=== PATIENT | female | born 1945 | race Caucasian/White ===

== ENCOUNTER → 2016-12-04 17:01 | Outpatient (CLI) | payer MEDICARE, BC ==
[2016-06-22 12:24] VITALS: BMI 28.4
[~2016-12-04 17:01] MED LIST: ALENDRONATE SOD70 MG PO; ASPIRIN 81 MG E81 MG PO; KEFLEX500 MG PO; LUTEIN20 MG PO; METFORMIN HCL500 M1 PO; PERCOCET 10/3251 TA1 PO; PRAVACHOL40 MG PO; PRINIVIL20 MG PO; PROBENECID500 MG PO; TAMOXIFEN CITRA20 MG PO; TENORMIN50 MG PO
== END | disposition home or self-care (01) ==
LOC: D.MAMMO 11-23 09:30
DX: Z85.3 Personal history of malignant neoplasm of breast (principal); Z90.12 Acquired absence of left breast and nipple

== ENCOUNTER 2017-02-01 07:33 | Outpatient (CLI) | payer MEDICARE, BC ==
[~2017-02-01] VITALS: Ht 162.6 cm; Wt 75.0 kg
--- NOTE | ~2017-02-01 | HEMODYNAMI ---
PATIENT:BRAULIO KEENAN MEDICAL RECORD: [id number] : 45 LOCATION:DMisaelCAT ADMISSION DATE: 02/01/17 Generatedon:02/01/201710:42 Patient name: BRAULIO KEENAN Patient #: [id number] SSN: [id number] : 1945 Date of study: 02/01/2017 Page: Of Hemodynamic Procedure Report Patient Data Patient Demographics Procedure consent was obtained First Name: BRAULIO Gender: Female Last Name: SHLOMO : 1945 Middle Initial: UMA Age: 71 year(s) Patient #: [id number] Race: SSN: [id number] Additional ID: [id number] Contact details [address]: [address] [place] [address] DRIVE State: [place] City: [place] Zip code: [address] Admission Admission Data Admission Date: 02/01/2017 Admission Time: 7:33 Arrival Date: 02/01/2017 Arrival Time: 9:30 Admit Source: Other Insurance Payor: Medicare Height (in.): 64 BSA: 1.8 (m2) Height (cm.): 162.56 BMI: 28.32 (kg/m2) Weight (lbs.): 165 Weight (kg.): 74.84 Lab Results Lab Result Date: 02/01/2017 Lab Result Time: 0:00 Biochemistry Name Units Result Min Max BUN mg/dl 20 --(----)*- 7 18 Creatinine mg/dl 0.7 --(*---)-- 0.6 1.3 CBC Name Units Result Min Max Hemoglobin g/dl 13.7 --(*---)-- 13.5 17.5 Procedure Procedure Types Cath Procedure Diagnostic Procedure LHC LHC w/Coronaries Miscellaneous Procedures Moderate Sedation up to 30 minutes Procedure Description Procedure Date Procedure Date: 02/01/2017 Procedure Start Time: 10:26 Procedure End Time: 10:38 Procedure Staff Name Function Levi Mercado MD Performing Physician Baylee Benedict RT Scrub Dylan Cohen RN Nurse Nathaly Kimble RT Monitor Procedure Data Cath Procedure Fluoroscopy Diagnostic fluoroscopy Total fluoroscopy Time: 2.1 time: 2.1 min min Diagnostic fluoroscopy Total fluoroscopy dose: 217 dose: 217 mGy mGy Contrast Material Contrast Material Type Amount (ml) Isovue 300 70 Entry Location Entry Primary Successful Side Size Upsize Upsize Entry Closure Foster ccessful Closure Location (Fr) 1 (Fr) 2 (Fr) Remarks Device Remarks Radial Right 6 Fr Mechanical artery Short Compression Estimated blood loss: 5 ml Diagnostic catheters Device Type Used For End Catheter Placement Diagnostic Infinity 5Fr LV Angiography Pigtail catheter Procedure Complications No complications Procedure Medications Medication Administration Route Dosage Oxygen NC 2 l/min Heparin Flush Bag added to field 2 bags (1000units/500ml NS) 0.9% NaCl I.V. 100 ml/hr Radial Cocktail added to field 1 syringe (Verapomil 2mg/Nitro 400mcg/Heparin 1500units) Fentanyl I.V. 50 mcg Versed I.V. 1 mg Fentanyl I.V. 50 mcg Versed I.V. 1 mg Radial Cocktail I.A. 1 syringe (Verapomil 2mg/Nitro 400mcg/Heparin 1500units) Hemodynamics Rest BSA: 1.8 (m2) HGB: 13.7 (g/dl) O2 Consumption: Estimated: 161.2 (ml/min) O2 Cons umption indexed: Estimated:89.56 (ml/min/m) Heart Rate: 64 (bpm) Pressure Samples Time Site Value (mmHg) Purpose Heart Use Rate(bpm) 10:34 LV 130/9,14 Snapshot 67 10:35 AO 135/63(96) Pullback 70 10:35 LV 136/6,15 Pullback 70 Gradients Valve Time Site 1 Site 2 Mean SEP/DFP Peak To Heart Use (mmHg) (sec/min) Peak Rate (mmHg) (bpm) Aortic 10:35 LV AO 8 12 1 70 136/6,15 135/63(96) Calculations Valve P-P Mean Valve Index Valve Source Name Gradient Area Flow (cm2) Aortic 1 8 1 8 Snapshots Pre Cath Intra NCS Post Cath Vital Signs Time Heart Resp SPO2 etCO2 [id number] NIBP (mmHg) Rhythm Pain Sedation Rate (ipm) (%) (mmHg) (mmHg) Status Level (bpm) 10:10:54 60 17 99 0 0 196/94(140) NSR 0 (11) 10(A) , No pain 10:15:20 53 17 98 0 0 165/82(144) NSR 0 (11) 10(A) , No pain 10:19:54 54 18 98 0 0 169/81(125) NSR 0 (11) 9(A) , No pain 10:25:42 66 18 99 0 0 193/94(150) NSR 0 (11) 9(A) , No pain 10:31:49 65 17 95 0 0 154/68(100) NSR 0 (11) 9(A) , No pain 10:36:21 65 17 96 0 0 162/76(120) NSR 0 (11) 9(A) , No pain 10:41:58 57 18 97 0 0 182/69(133) NSR 0 (11) 9(A) , No pain Medications Time Medication Route Dose Verified Delivered Reason Notes Effectiveness by by 10:08:34 Oxygen NC 2 l/min Dylan Richardson Per Noel Cohen RN physician RN 10:08:43 Heparin Flush added 2 bags Dylan Petersony used for Bag to Noel Cohen service girl (1000units/500ml field RN NS) 10:08:54 0.9% NaCl I.V. 100 Dylan Dylan Per ml/hr Noel Cohen RN physician RN 10:09:04 Radial Cocktail added 1 Dylan Dylan used for (Verapomil to syringe Noel Cohen service girl 2mg/Nitro field RN 400mcg/Heparin 1500units) 10:16:33 Fentanyl I.V. 50 mcg Dylan Dylan for sedation Noel Cohen RN RN 10:16:40 Versed I.V. 1 mg Dylan Dylan for sedation Noel Cohen RN RN 10:29:12 Fentanyl I.V. 50 mcg Dylan Dylan for sedation Noel Cohen RN RN 10:29:15 Versed I.V. 1 mg Dylan Dylan for sedation Noel Cohen RN RN 10:29:21 Radial Cocktail I.A. 1 Dylan Levi for (Verapomil syringe Noel Mercado MD vasodilation 2mg/Nitro RN 400mcg/Heparin 1500units) Procedure Log Time Note 9:41:20 Dylan Cohen RN sent for patient. Start room use. 9:45:55 Patient Height : 64 cm 9:45:59 Patient Weight : 165 kg 9:46:02 Admit Source: Other 9:51:21 Time tracking: Regular hours 9:51:26 Plan of Care:Hemodynamics will remain stable., Cardiac rhythm will remain stable., Comfort level will be maintained., Respiratory function will remain adequate., Patient/ family verbilizes understanding of procedure., Procedure tolerated without complication., Recovers from procedure without complications.. 9:58:02 Patient received from Pre/Post Procedure Room to CCL 1 Alert and oriented. Tansferred to table in Supine position. 9:58:03 Warm blankets applied, and sal hugger turned on for patient comfort. 9:58:03 Correct patient and procedure confirmed by team. 9:58:07 Signed procedure consent form obtained from patient. 9:58:08 ECG and BP/O2 sat monitors applied to patient. 9:58:09 Full Disclosure recording started 10:08:05 Vital chart was started 10:08:32 Baseline sample Acquired. 10:08:34 Oxygen 2 l/min NC was administered by Dylan Cohen RN; Per physician; 10:08:36 Rhythm: sinus rhythm 10:08:43 Heparin Flush Bag (1000units/500ml NS) 2 bags added to field was administered by Dylan Cohen RN; used for procedure; 10:08:54 0.9% NaCl 100 ml/hr I.V. was administered by Dylan Cohen RN; Per physician; 10:09:04 Radial Cocktail (Verapomil 2mg/Nitro 400mcg/Heparin 1500units) 1 syringe added to field was administered by Dylan Cohen RN; used for procedure; 10:09:26 H&P Date Dictated: 01/30/2017 Within 30 days and on chart., H&P Addendum completed by physician on day of procedure. (MUST COMPLETE FOR ALL OUTPATIENTS). 10:09:27 Pre-procedure instructions explained to patient. 10:09:28 Pre-op teaching completed and patient verbalized understanding. 10:09:29 Family in waiting room. 10:09:31 Patient NPO since Midnight. 10:09:37 Is the patient allergic to Iodine/contrast media? No. 10:09:38 Was the patient premedicated? No 10:09:43 Is patient on blood thinner?No 10:09:48 Patient diabetic? Yes. 10:09:49 If diabetic: On Metformin? Yes 10:09:52 If on Metformin: Last Dose? 01/30/2017 10:09:57 Previous problem with sedation/anesthesia? No ? 10:10:02 Snore? Yes 10:10:04 Sleep apnea? No 10:10:06 Deviated septum? No 10:10:07 Opens mouth fully? Yes 10:10:07 Sticks out tongue? Yes 10:10:31 Airway obstruction? No ? 10:10:33 Dentures? No ? 10:12:50 Pre procedure: right dorsailis pedis pulse 2+ Normal; easily identifiable; not easily obliterated 10:12:54 Pre procedure: left dorsailis pedis pulse 2+ Normal; easily identifiable; not easily obliterated 10:12:59 Patient pain scale 0/10 ?. 10:13:07 IV patent on arrival in right antecubital with 0.9% NaCl at [facility]. 10:15:13 Lab Result : Creatinine 0.7 mg/dl 10:15:13 Lab Result : BUN 20 mg/dl 10:15:13 Lab Result : Hemoglobin 13.7 g/dl 10:15:17 Lab results completed and on chart. 10:15:22 Right Radial & Right Groin area was prepped with chlora-prep and draped in sterile fashion 10:15:23 Alarms reviewed by R. N. 10:15:23 Sharps counted by scrub and verified by R.N. 10:15:24 Physician arrived 10:15:25 --------ALL STOP TIME OUT------ 10:15:25 Final Timeout: patient, procedure, and site verified with staff and physician. All members of the team are in agreement. 10:15:28 Right Radial & Right Groin site verified by team. 10:15:31 Physical assessment completed. ASA score P 2 - A patient with mild systemic disease as per Levi Mercado MD. 10:15:34 Sedation plan: IV Moderate Sedation Versed, Fentanyl 10:16:33 Fentanyl 50 mcg I.V. was administered by Dylan Cohen RN; for sedation; 10:16:40 Versed 1 mg I.V. was administered by Dylan Cohen RN; for sedation; 10:20:04 Zero performed for pressure channel P1 10:20:19 Use device set Radial Dx 10:20:20 Acist Syringe opened to sterile field. 10:20:20 Medline Cath Pack opened to sterile field. 10:20:21 Bag Decanter opened to sterile field. 10:20:21 Terumo 6Fr Slender Glidesheath opened to sterile field. 10:20:21 St Mk 260cm J .035 wire opened to sterile field. 10:20:22 Acist Hand Control opened to sterile field. 10:20:22 Acist Manifold opened to sterile field. 10:20:22 Tegaderm 4 x 4 opened to sterile field. 10:20:23 MBrace Wrist Support opened to sterile field. 10:25:44 Procedure started. 10:26:20 Local anesthetic to right radial artery with Lidocaine 2% by Levi Mercado MD.INITIAL ACCESS ONLY 10:26:38 A 6 Fr Short sheath was inserted into the Right Radial artery 10:29:12 Fentanyl 50 mcg I.V. was administered by Dylan Cohen RN; for sedation; 10:29:15 Versed 1 mg I.V. was administered by Dylan Cohen RN; for sedation; 10:29:21 Radial Cocktail (Verapomil 2mg/Nitro 400mcg/Heparin 1500units) 1 syringe I.A. was administered by Levi Mercado MD; for vasodilation; 10:29:40 Terumo 6Fr [place] 4.0 guide catheter opened to sterile field. 10:30:20 LCA angiography performed. 10:30:23 Injector settings: Ml/sec: 3, Volume: 6, 10:32:08 RCA angiography performed. 10:32:11 Injector settings: Ml/sec: 3, Volume: 6, 10:32:22 Catheter removed. 10:33:00 A Diagnostic Infinity 5Fr Pigtail catheter was advanced over the wire and used for LV Angiography. 10:34:07 LV hemodynamics recorded. 10:34:09 LV gram done using MATSON 10:34:11 Injector settings: Ml/sec: 5, Volume: 15, 10:34:42 EF : 50 % 10:35:05 Catheter removed. 10:35:15 Terumo TR Band Standard opened to sterile field. 10:36:44 Sheath removed intact; hemostasis achieved with Mechanical Compression to the Right Radial artery. 10:36:51 Procedure ended.(Physican Out) 10:37:10 Fluoroscopy time 02.10 minutes. 10:37:15 Flurop Dose total: 217 10:37:15 Fluoroscopy dose: 217 mGy 10:37:39 Contrast amount:Isovue 300 70ml. 10:37:42 Sharps counted by scrub and verified by R.N. 10:37:59 TR band inflated with 10cc of air. 10:38:00 Insertion/operative site no bleeding no hematoma. 10:38:05 Post right radial artery:stable 10:38:07 Post Procedure Pulses reassessed and unchanged 10:38:11 Post procedure rhythm: unchanged. 10:38:15 Estimated blood loss: 5 ml 10:38:17 Post procedure instruction explained to patient.Patient verbalizes understanding. 10:38:17 Patient needs reinforcement of post procedure teaching. 10:38:34 Procedure type changed to Cath procedure, Diagnostic procedure, LHC, LHC w/Coronaries, Miscellaneous Procedures, Moderate Sedation up to 30 minutes 10:38:35 Procedure and supply charges have been captured, reviewed, submitted and are correct. 10:38:40 Procedure Complication : No complications 10:38:44 Vital chart was stopped 10:38:45 See physician's report for complete and final results. 10:38:51 Report given to Pre/Post Procedure Room. 10:38:54 Patient transfered to Pre/Post Procedure Room with Stretcher. 10:38:57 Procedure ended. 10:38:57 Full Disclosure recording stopped 10:39:01 End room use (Document Last) 10:41:24 Arrival Date: 02/01/2017 9:30:00 AM 10:41:44 Insurance Payor : Medicare Device Usage Item Name Manufacture Quantity Catalog Hospital Part Current Minimal Lot# / Number Charge Number Stock Stock Serial# Code Acist Acist 1 [id number] [id number] 163860 003933 20 Syringe Medical Systems Inc Medline Cardinal 1 [id number] [id number] 66770 825169 5 Cath Pack Health Bag Microtek 1 2001S 171918 17621 545513 5 DecFayettechill [employer]. Terumo 6Fr Terumo 1 [id number] 542817 309649 992306 [address] Mk St Mk 1 182176 951835 473233 709510 30 260cm J .035 wire Acist Hand Acist 1 95164 120083 561929 207341 5 Control Medical Systems Inc Acist Acist 1 96404 818850 990670 981462 5 Manifold Medical Systems Inc Tegaderm 4 3M 1 1626W 571199 954005 531546 5 x 4 MBrace Advanced 1 140-0250-00 195304 53243 181880 5 Wrist Vascular Support Dynamics Terumo 6Fr Terumo 1 46-7723 962501 441260 021060 1 [place] 4.0 guide catheter Diagnostic Cardinal 1 [id number] 864385 725846 593240 5 XimoXi 5Fr Pigtail catheter Terumo TR Terumo 1 [id number] 860787 573380 925873 40 Band Standard Signature Audit [place] Stage Time Signature Unsigned Intra-Procedure 02/01/2017 Nathaly Kimble 10:42:31 AM RT(R) Signatures Monitor : Nathaly Kimble RT Signature : Date : Time : [place] [id number] [place] [place] [id number]
[2017-02-01 08:26] VITALS: BP 97/52; Ht 162.6 cm; Wt 75.0 kg
[2017-02-01 08:44] LABS: BASOPHILS 0.2 % (0-2); EOSINOPHILS 1.2 % (0-7); HEMATOCRIT 41.1 % (36.0-48.0); HEMOGLOBIN 13.7 g/dL (12-16); IMMATURE GRANULOCYTES 0.2 % (0-5); LYMPHOCYTES 23.1 % (15-50); MCH 33.4 pg (26.0-34.0); MCHC 33.3 g/dL (31.0-37.0); MCV 100.2 fL (80.0-100.0); MEAN PLATELET VOLUME 11.2 fL (7.4-10.4); NEUTROPHILS 67.3 % (40-80); PLATELET COUNT 164 10x3/uL (130-400); RDW 12.8 % (11.5-14.5); WBC 6.5 10x3/uL (4.8-10.8)
[2017-02-01 09:01] LABS: CALC OSMOLALITY 285 mosm/kg (275-300); CALCIUM 8.9 mg/dL (8.5-10.1); CARBON DIOXIDE 26.4 mmol/L (21.0-32.0); CHLORIDE - SERUM 107 mmol/L (98-107); CREATININE - SERUM 0.7 mg/dL (0.6-1.3); GLUCOSE 132 mg/dL (74-106); SODIUM 141 mmol/L (136-145); UREA NITROGEN 20 mg/dL (7-18); eGFR NON AFRICAN AMERICAN 87 mL/min (90-120)
[2017-02-01 09:06] LABS: POTASSIUM - SERUM 5.1 mmol/L (3.5-5.1)
--- NOTE | 2017-02-01 10:55 | NUR ---
1055 RECIEVED BACK TO ROOM VIA STRETCHER FROM LYFT DRIVER WITH TR BAND TO THE R/WRIST CDI NO BLEEDING NO HEMATOMA NOTED. INSTRUCTED PATIENT TO KEEP RUE STRAIGHT NO BENDING OR FLEXING OF WRIST. 1115 RESTING QUIETLY WITH EYES CLOSED NO DISTRESS VSS TR BAND REMAINS TO R/WRIST CDI
--- NOTE | 2017-02-01 11:45 | NUR ---
1145 REPOSITIONED TO SITTING WITH HOB UP 30 DEGREES FOR COMFORT. PATIENT VOIDS 300 CC URINE TO COLLECTION MONIQUE CARE PROVIDED VSS WITH CHEST PAIN DENIED 1215 SANDWICH AND SODA TO BEDSIDE WITH NEEDS PROVIDED TR BAND REMAINS TO R/WRIST CDI NO BLEEDING NO HEMATOMA NOTED.
--- NOTE | 2017-02-01 12:45 | NUR ---
1245 VSS WITH CHEST PAIN DENIED NO CHANGE IN ASSESSMENT. TR BAND REMAINS CDI NO BLEEDING NO HEMATOMA NOTED 1300 2 CC AIR REMOVED FROM TR BAND WITH NO BLEEDING NOTED
--- NOTE | 2017-02-01 13:15 | NUR ---
1315 PIV REMOVED WITH DRESSING APPLIED. 2 CC AIR REMOVED FROM TR BAND NO BLEEDING AT SITE. CHEST PAIN IS DENIED PATIENT UP TO GET DRESSED FOR DISCHARGE HOME
--- NOTE | 2017-02-01 13:26 | NUR ---
VERBAL AND WRITTEN DISCHARGE GONE OVER WITH PATIENT AND FAMILY BOTH VERBALIZED UNDERSTANDING. TR BAND REMOVED WITH DRESSING APPLIED. CHEST PAIN IS DENIED. LEFT VIA WC TO PARKING FOR TO DRIVE HOME
--- NOTE | 2017-02-02 13:26 | OP ---
PATIENT NAME: BRAULIO KEENAN MEDICAL RECORD: [id number] :45 LOCATION:D.CAT ADMISSION DATE: SURGEON: [place] M.D. DATE OF OPERATION: 02/01/2017 Catheterization Report REFERRING PHYSICIAN: Nathaly Paulson MD PROCEDURES PERFORMED: 1. Selective coronary angiography. 2. Left heart catheterization with ventriculogram. INDICATION: A 71-year-old presents with worsening mitral regurgitation. EQUIPMENT USED: A 5-[place] catheter, pigtail catheter. TECHNIQUE: A 6-[place] sheath was inserted in retrograde fashion in the right radial artery. Next, selective coronary angiography was performed in standard views using 5-[place] catheter. Left heart catheterization performed using pigtail catheter. CORONARY ANATOMY: 1. Left main: Left main trunk is large in caliber. It gives rise to the LAD and circumflex. It appears angiographically normal. 2. LAD: This is a moderate caliber vessel extending to the apex. It gives rise to a moderate caliber diagonal proximal segment. The LAD and diagonal are angiographically normal. 3. Circumflex: This vessel is moderate in caliber. ____ lateral branch in mid segment. The circumflex and lateral branches are angiographically normal. 4. Right coronary: This vessel is quite large and dominant. It provides the PDA and posterolateral branches in the distal segment. This vessel is a smooth-walled vessel and angiographically normal. 5. Left ventricle: The left ventricle is normal in size. Systolic function appears to be lower limits of normal around 50%. There is at least moderate mitral regurgitation noted. IMPRESSION: 1. Normal coronary arteries. 2. At least moderate mitral regurgitation with ejection fraction 50%. RECOMMENDATIONS: We will likely have Dr. Yepez to review the case again. The ejection fraction is slightly diminished from previous and she now has a prolapse of both mitral valve leaflets. TRANSINT:[id number] Voice Confirmation ID: [id number] DOCUMENT ID: [id number] OPERATIVE REPORT [id number] BRAULIO KEENAN [place] M.D. at 1326 CC: [id number] DICTATION DATE: 02/01/17 1041 BOOM TENDER: 02/01/17 2334 DEP CLI 02/01/17 [facility] [address] [place] [address]
== END 2017-02-01 13:30 | disposition home or self-care (01) ==
LOC: D.CATH 07:33
PROVIDERS: Internal Medicine Cardiovascular Disease
DX: I34.0 Nonrheumatic mitral (valve) insufficiency (principal)

== ENCOUNTER → 2018-01-28 22:38 | Outpatient (CLI) | payer MEDICARE, BC ==
[2017-02-01 08:26] VITALS: BMI 28.4
== END | disposition home or self-care (01) ==
LOC: D.MAMMO 12:00
DX: Z85.3 Personal history of malignant neoplasm of breast (principal); Z12.31 Encounter for screening mammogram for malignant neoplasm of breast

== ENCOUNTER 2018-03-05 09:37 | Day surgery (SDC) | payer MEDICARE, BC ==
[~2018-03-05] VITALS: Ht 162.6 cm; Wt 68.0 kg
--- NOTE | ~2018-03-05 | HP ---
PATIENT: BRAULIO KEENAN MEDICAL RECORD: [id number] ACCOUNT: [id number] LOCATION:D.OPS : 45 ADMISSION DATE: 03/05/18 HISTORY AND PHYSICAL EXAMINATION NameBRAULIO KEENAN (72yo, F) ID# [id number]. Date/Time12/21/2017 01:68FNZYW41/24/194Serre[facility] Dept.NPP_[place] ClinicProviderEDWINDY FRANKLIN MDInsuranceMed Primary: [place] ([place]) Insurance # : [id number] Referring Provider Name : DARYA APPLE Employer Name : UNKNOWN Med Secondary: [employer] Insurance # : [id number] Policy/Group # : [id number] Referring Provider Name : DARYA APPLE Employer Name : UNKNOWN Prescription: ESI1 - Member is eligible. Chief Complaint Followup: Mitral valve regurgitation Following MR 9 mo f/u-schedule for OSMAN? Patient's Care Team Referring Provider (): DARYA APPLE: [facility], [facility] [place] [address], , Trailhead Maintenance Worker: [place] MD: [address] [place] [phone], , Patient's Pharmacies [facility] (ERX): [address] [facility] [address], , Vitals BP:142/80 sitting R arm 12/21/2017 01:24 pmHR:57/irreg 12/21/2017 01:24 pmHt:5 ft 6 in 12/21/2017 01:20 pmWt:151 lbs 12/21/2017 01:24 pmBMI:24.4 12/21/2017 01:24 pmAllergies Reviewed Allergies NKDAMedications Reviewed Medications alendronate 70 mg /05/18 hcifjeCAEMLhfonuog95/26/13 enteredRebecca Coxatenolol 50 mg qsriqx87/05/18 filledMEDCOatorvastatin 40 mg oplluo17/21/18 filledMEDCOcefdinir 300 mg zydhblq08/20/17 filledMEDCOFarxiga 5 mg dayvid67/26/18 filledMEDCOlisinopril 20 mg /05/18 filledMEDCOmetFORMIN 500 mg /29/17 filledMEDCOnitrofurantoin monohydrate/macrocrystals 100 mg yxgkkvp95/25/18 filledMEDCOpravastatin 40 mg /27/18 filledMEDCOtamoxifen 20 mg pyhnfk35/26/18 filledMEDCOVision Formula (with lutein)03/21/17 enteredKathy WilsonProblems Reviewed Problems Primary malignant neoplasm of female breast Carcinoma in situ of breast Multinodular goiter Dominant nodule of thyroid Mitral valve regurgitation - Onset: 03/16/2017 Mammography abnormal Family History Reviewed Family History HISTORY AND PHYSICAL [id number] BRAULIO KEENAN Non-contributory.Social History Reviewed Social History Cardiology and General Family history of heart disease?: N Smoking Status: Former smoker Smoker () (Notes: QUIT 30 YEARS AGO) High Cholesterol: Y High blood pressure: Y Diabetes: Y Alcohol intake: None Marital status: Caffeine intake: None Surgical History Reviewed Surgical History Other - Repair of right elbow fracture Mastectomy, simple, complete (surg) - 10/08/2013 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 HPI Fatigue Reported by patient. Severity: normal sleep patterns; normal exercise habits; normal activity; improving Timing: better Context: symptoms improve on weekends/vacation; no problems/stress at work or home Modifying Factors: no new stressors in life; taking vitamins Associated Symptoms: no drug/alcohol withdrawal; no depression; no anxiety; no sleep disturbances; no snoring; periods of not breathing (apnea) have not been observed; no recent change in weight Faulkner's mitral valve prolapse ROS Patient reports no fever, no night sweats, no significant weight gain, no significant weight loss, and no exercise intolerance; the patient can ride a bike 5 pounds and has no shortness of breath and any time. She reports no dry eyes, no irritation, and no vision change. She reports no difficulty hear ing and no ear pain. She reports no frequent nosebleeds and no nose/sinus problems. She reports no sore throat, no bleeding gums, no snoring, no dry mouth, no mouth ulcers, no oral abnormalities, and no teeth problems. She reports no jugular vein distensi o n and no swollen glands. She reports no chest pain, no arm pain on exertion, no shortness of breath when walking, no shortness of breath when lying down, no palpitations, and no known heart murmur. She reports no cough, no wheezing, no shortness of breath , and no coughing up blood. She reports no abdominal pain, no vomiting, normal appetite, no diarrhea, not vomiting blood, no nausea, and no constipation. She HISTORY AND PHYSICAL [id number] SHLOMOBRAULIO UMA reports no incontinence, no difficulty urinating, no hematuria, and no increased frequency. She re p orts no muscle aches, no muscle weakness, no arthralgias/joint pain, no back pain, and no swelling in the extremities. She reports no abnormal mole, no jaundice, and no rashes. She reports no loss of consciousness, no weakness, no numbness, no seizures, n o dizziness, and no headaches. She reports no depression, no sleep disturbances, feeling safe in relationship, and no alcohol abuse. She reports no fatigue. She reports no swollen glands and no bruising. She reports no runny nose, no sinus pressure, no itc jacky, no hives, and no frequent sneezing. ROS as noted in the HPI Physical Exam Patient is a 72-year-old female. Constitutional: General Appearance well nourished and developed and healthy-appearing. Level of Distress NAD. Ambulation ambulating normally. Cardiovascular: Apical Impulse not displaced or no thrill. Heart Auscultation normal s1 and s2, no rubs or gallops, and RRR and murmur (low pitched mitral regurgitation). Arterial Pulses no abdominal aorta bruits, femoral bruits, or popliteal bruits and 2+ bilateral, carotid 2+ bilateral, femoral 2+ bilateral, popliteal 2+ bilateral, and dorsalis pedis 2+ bilateral. Edema no edema or varicosities. Lungs: Repiratory Effort no dyspnea. Percussion no hyperresonance or dullness or flatness. Auscultation no wh eezing, rhonchi, or rales / crackles and breathing sounds normal, good air movement, and CTA except as noted. Abdomen: Bowl Sounds normal. Inspection and Palpation no tenderness, guarding, masses, or rebound tenderness and soft and non-distended. Liver no n-tender and no hepatomegaly. Spleen non-tender and no splenomegaly. Hernia none palpable. Musculoskeletal System: Gait And Stance normal gait and stance. Digits and Nails normal nails and no cyanosis. Neurologic: Cranial Nerves grossly intact. Reflexes DTRs 2+ bilaterally throughout. Sensation grossly intact. Lymph Nodes: Lymph Nodes no cervical LAD, supraclavicular LAD, axillary LAD, or inguinal LAD. Eyes: Lids and Conjunctivae no discharge or pallor and non-injected. Pupils PERRLA. Cornea grossly intact. EOM EOMI. Lens clear. Sclera non-icteric. Neck: Neck no masses, enlarged lymph nodes, or carotid bruits and supple and trachea midline. Thyroid no enlargement or nodules and non-tender. Skin: Inspection and Palpation no rash, lesions, ulcers, jaundice, or abnormal nevi. Assessment / Plan Faulkner's mitral valve prolapse 1. Mitral valve regurgitation I34.0: Nonrheumatic mitral (valve) insufficiency HEART VALVE DISEASE: CARE INSTRUCTIONS MITRAL VALVE REGURGITATION: CARE INSTRUCTIONS HISTORY AND PHYSICAL [id number] BRAULIO KEENAN Discussion Notes patient has excellent exercise tolerance and no shortness of breath She will call to schedule transesophageal echo with general anesthesia ROYCE FRANKLIN MD at 1309 CC: [id number] DICTATION DATE: 12/21/17 1310 TELECOM ASSISTANT: DM 03/04/18 1011 [facility] 03/05/18 [place] [id number] [place] [address]
--- NOTE | ~2018-03-05 | OP ---
PATIENT NAME: BRAULIO KEENAN MEDICAL RECORD: [id number] :45 LOCATION:D.OPS ADMISSION DATE: SURGEON: ROYCE YEPEZ MD DATE OF OPERATION: 03/05/2018 SURGEON: Royce Yepez MD ANESTHESIA: Turner, general. OPERATION PERFORMED: Transesophageal echocardiogram. PREOPERATIVE DIAGNOSIS: Mitral regurgitation. POSTOPERATIVE DIAGNOSIS: Mitral valve prolapse bileaflet and regurgitation. INDICATION FOR OPERATION: Mitral regurgitation. FINDINGS OF THE OPERATION: The transesophageal echocardiogram was performed by Dr. Bosch and read real-time by me. The left ventricular ejection fraction normal. The left atrium upper limits of normal. There was no mitral regurgitation or tricuspid regurgitation. There was trace aortic regurgitation. ESTIMATED BLOOD LOSS: None. DESCRIPTION OF PROCEDURE: After informed consent, adequate preoperative medication evaluation, the patient was brought to the operating room, placed on the table in the supine position. After induction of general anesthesia and application of appropriate monitoring devices, the patient underwent placement of the transesophageal probe with Dr. Bosch. The heart was examined. The above findings were noted. The patient has bileaflet mitral valve prolapse with moderate mitral regurgitation. The patient has trace aortic regurgitation with good leaflet mobility. The probe was removed. The patient awakened and transferred to the postanesthesia recovery in satisfactory condition. TRANSINT:[id number] Voice Confirmation ID: [id number] DOCUMENT ID: [id number] ROYCE YEPEZ MD at 1309 CC: [id number] DICTATION DATE: 03/05/18 1246 PLASTIC SHAPER: 03/05/18 1328 [facility] 03/05/18 [place] [address]
--- NOTE | ~2018-03-05 | TEE ---
PATIENT:BRAULIO KEENAN MEDICAL RECORD: [id number] LOCATION:D.[facility] AGE OF PATIENT: 72 ADMISSION DATE: 03/05/18 SEX: F REFERRING PHYSICIAN: INTERPRETING PHYSICIAN: JEN ARCOS MD TRANSESOPHAGEAL ECHOCARDIOGRAM Date: 03/05/18 OSMAN CHARGE Y INDICATIONS: ASSESS MITRAL VALVE AND REGURG PREMEDICATIONS: PATIENT'S RESPONSE PROCEDURE DOPPLER MEASUREMENTS: LVIT LA PA RA LVOT RVOT Asc. Ao AV Gradient Peak AV Mean AV Area MV Gradient Peak MV Mean MV Area INTERPRETATION: Doppler: 2-D: MITRAL VALVE PROLAPSE OF BOTH LEAFLETS COLOR FLOW DOPPLER SEVERE MR, TRACE AI NORMAL SALINE STUDY: MISCELLANOUS: DIAGNOSIS: PLAN: Bias Binding Folder:1 Dr. Arcos Freezer Unloader: Kyara CUELLAR COMMENTS: NOEMI PATIENT DATE OF SERVICE: 03/05/2018 PROCEDURE: Transesophageal echo evaluation of valvular structures during mitral valve repair. FINDINGS: 1. Left ventricular chamber size is within normal limits. Left ventricular systolic function is normal. Overall ejection fraction estimated at 60%. 2. Left atrium is within normal limits at 3.9 cm. Right atrium and right TRANSESOPHAGEAL ECHOCARDIOGRAM REPORT [id number] DANIEL KEENAN ventricle chamber sizes are mildly dilated. 3. Valvular structures: Mitral valve shows mitral valve prolapse of both leaflets causing severe mitral regurgitation. Remaining valvular structures have normal structure and motion. 4. Doppler interrogation elsewise only reveals trace aortic insufficiency. 5. No evidence of pericardial effusion or left ventricular thrombus. TRANSINT:[id number] Voice Confirmation ID: [id number] DOCUMENT ID: [id number] at 1207 CC: [id number] DICTATION DATE: 03/05/18 1621 MARKETING ACCOUNT MANAGER: 03/05/18 1811 [facility] 03/05/18 [id number] [place] [address]
[2018-03-05 10:06] LABS: HEMATOCRIT 36.8 % (36.0-48.0); MCH 33.2 pg (26.0-34.0); MCHC 32.6 g/dL (31.0-37.0); MCV 101.9 fL (80.0-100.0); MEAN PLATELET VOLUME 10.9 fL (7.4-10.4); RBC 3.61 10x6/uL (4.00-5.40); RDW 12.9 % (11.5-14.5); WBC 4.4 10x3/uL (4.8-10.8)
[2018-03-05 10:20] LABS: APTT 24.8 SECONDS (22.8-39.4); INR 1.06 (0.85-1.17); PROTIME 13.4 SECONDS (11.6-15.0)
[2018-03-05 10:27] LABS: ANION GAP 14.7 mmol/L (8-16); CREATININE - SERUM 1.4 mg/dL (0.6-1.3); POTASSIUM - SERUM 4.7 mmol/L (3.5-5.1)
[2018-03-05] MEDS ORDERED: ACTOS15 MG (11:09)
[2018-03-05 11:12] VITALS: BP 137/47; Ht 162.6 cm; Wt 68.0 kg
== END 2018-03-05 14:52 | disposition home or self-care (01) ==
LOC: D.OPS 09:37
PROVIDERS: Internal Medicine Cardiovascular Disease
DX: I34.0 Nonrheumatic mitral (valve) insufficiency (principal); I34.1 Nonrheumatic mitral (valve) prolapse; Z01.812 Encounter for preprocedural laboratory examination

== ENCOUNTER → 2018-12-23 10:06 | Outpatient (CLI) | payer MEDICARE, BC ==
[2018-03-05 11:12] VITALS: BMI 25.8
[~2018-12-23 10:06] MED LIST changes: +ACTOS15 MG
--- NOTE | 2018-12-25 14:39 | EC ---
PATIENT:BRAULIO KEENAN DATE OF SERVICE: 12/23/18 SEX: F MEDICAL RECORD: [id number] DATE OF : 45 LOCATION:[facility] AGE OF PATIENT: 73 ADMISSION DATE: 12/23/18 REFERRING PHYSICIAN: INTERPRETING PHYSICIAN: JEN REGALADO MD ECHOCARDIOGRAM REPORT ECHO CHARGES Date: CLINICAL DIAGNOSIS: ECHOCARDIOGRAPHIC MEASUREMENTS (adult normal given) AC root (d.<3.7cm) cm LV Septum d (<1.2 cm> cm Valve Excursion cm LV Septum (systole) cm Left Atria (s.<4.0cm> cm LVPW d(<1.2cm) cm RV (d.<2.3cm) cm LVPW (sytole) cm LV diastole(<5.6CM) cm MV E-F(>70mm/sec) cm LV systole cm LVOT Diameter cm MV exc.(>10mm) cm Est.ejection fraction (50-75%) % DOPPLER: LVIT cm/sec A cm/sec E cm/sec LA cm/sec RVSP mmHg LVOT cm/sec AOP1/2T m/s Asc. Ao cm/sec RVOT cm/sec RA cm/sec PA cm/sec AV Gradient Peak mmHg AV Mean mmHg AV Area cm MV Gradient Peak mmHg MV Mean mmHg MV Area cm COMMENTS: Marketing Content Specialist: Sourcer: ANNETTE# Pericardial Effusion DATE OF SERVICE: 12/23/2018 FINDINGS: 1. Left ventricular chamber size is within normal limits. Left ventricular systolic function is normal. Overall ejection fraction is estimated at 60% to 65%. 2. Left atrium is enlarged at 4.2 cm. Right atrium and right ventricle chamber sizes are as well mildly dilated. 3. Valvular structure have normal structure and motion. 4. Doppler interrogation reveals mild aortic insufficiency, severe mitral ECHOCARDIOGRAM REPORT [id number] BRAULIO KEENAN regurgitation, and moderate tricuspid regurgitation. No other valvular insufficiency or stenosis. Pulmonary systolic pressure is estimated at 54 mmHg. 5. No evidence of pericardial effusion or left ventricular thrombus. TRANSINT:[id number] Voice Confirmation ID: [id number] DOCUMENT ID: [id number] JEN REGALADO MD at 1438 CC: [id number] DICTATION DATE: 12/23/18 1530 MASK DESIGNER: 12/23/18 2247 DEP CLI 12/23/18 [facility] [address] [place] [address]
== END | disposition home or self-care (01) ==
LOC: D.ECHO 10:06
PROVIDERS: ATTEND Internal Medicine Cardiovascular Disease
DX: Z95.4 Presence of other heart-valve replacement (principal)

== ENCOUNTER 2019-01-28 11:28 | Outpatient (CLI) | payer MEDICARE, BC ==
[~2019-01-28] VITALS: Ht 165.1 cm; Wt 77.3 kg
--- NOTE | ~2019-01-28 | HEMODYNAMI ---
PATIENT:BRAULIO KEENAN MEDICAL RECORD: [id number] : 45 LOCATION:CATHIE ADMISSION DATE: 01/28/19 Generatedon:01/28/201914:18 Patient name: BRAULIO KEENAN Patient #: [id number] SSN: [id number] : 1945 Date of study: 01/28/2019 Page: Of Hemodynamic Procedure Report Patient Data Patient Demographics Procedure consent was obtained First Name: BRAULIO Gender: Female Last Name: SHLOMO : 1945 Middle Initial: UMA Age: 73 year(s) Patient #: [id number] Race: SSN: [id number] Additional ID: [id number] Contact details [address]: [address] [place] [address] DRIVE State: [place] City: [place] Zip code: [address] Past Medical History Allergies: No known allergies Admission Admission Data Admission Date: 01/28/2019 Admission Time: 11:28 Lab Results Lab Result Date: 01/28/2019 Lab Result Time: 0:00 Biochemistry Name Units Result Min Max BUN mg/dl 23 --(----)-* 7 18 Creatinine mg/dl 0.8 --(-*--)-- 0.6 1.3 CBC Name Units Result Min Max Hematocrit % 38 *-(----)-- 42 54 Hemoglobin g/dl 13.2 -*(----)-- 13.5 17.5 Procedure Procedure Types Cath Procedure Diagnostic Procedure LHC LHC w/Coronaries OSMAN Procedure Description Procedure Date Procedure Date: 01/28/2019 Procedure Start Time: 14:08 Procedure End Time: 14:15 Procedure Staff Name Function Miguelito Bartlett MD Performing Physician Aldo Sheikh RT Sleeve Setter Safety Stitch Dada Neil RT Monitor Ivette Bravo RT Scrub Ayden Rosario RN Nurse Adriana Baker Air Pumper Shyam Bosch MD Additional personnel Procedure Data Cath Procedure Fluoroscopy Diagnostic fluoroscopy Total fluoroscopy Time: 1.4 time: 1.4 min min Diagnostic fluoroscopy Total fluoroscopy dose: 172 dose: 172 mGy mGy Contrast Material Contrast Material Type Amount (ml) Isovue 300 29 Entry Location Entry Primary Successful Side Size Upsize Upsize Entry Closure Foster ccessful Closure Location (Fr) 1 (Fr) 2 (Fr) Remarks Device Remarks Radial Right 6 Fr Mechanical artery Short Compression Estimated blood loss: 5 ml Diagnostic catheters Device Type Used For End Catheter Placement DIAGNOSTIC [place] 110cm 5 Procedure Fr catheter ([id number]) Procedure Complications No complications Procedure Medications Medication Administration Route Dosage 0.9% NaCl I.V. 100 ml/hr Oxygen etCO2 Nasal cannula 5 l/min Heparin Flush Bag added to field 2 bags (1000units/500ml NS) Lidocaine 2% added to field 20 Hurricaine [place] P.O. 1 Sprays Benadryl I.V. 50 mg Refer to Anesthesia Notes for Sedation Medications Radial Cocktail added to field 1 syringe (Verapamil 2mg/Nitro 400mcg/Heparin 1500units) Radial Cocktail I.A. 1 syringe (Verapamil 2mg/Nitro 400mcg/Heparin 1500units) Hemodynamics Rest HGB: 13.2 (g/dl) Heart Rate: 56 (bpm) Pressure Samples Time Site Value (mmHg) Purpose Heart Use Rate(bpm) 14:11 LV 76/2,2 Snapshot 80 14:12 AO 100/62(80) Pullback 79 14:12 LV 79/10,8 Pullback 79 Gradients Valve Time Site 1 Site 2 Mean SEP/DFP Peak To Heart Use (mmHg) (sec/min) Peak Rate (mmHg) (bpm) Aortic 14:12 LV AO 0 79 79/10,8 100/62(80) Calculations Valve P-P Mean Valve Index Valve Source Name Gradient Area Flow (cm2) Aortic 0 0 Snapshots Pre Cath Intra NCS Post Cath Vital Signs Time Heart Resp SPO2 etCO2 NIBP (mmHg) Rhythm Pain Sedation Rate (ipm) (%) (mmHg) Status Level (bpm) 13:08:48 62 11 97 0 189/73(119) NSR 0 (11) 10(A) , No pain 13:13:35 58 19 99 37.7 182/76(115) NSR 0 (11) 10(A) , No pain 13:18:20 71 12 100 36.2 172/75(114) NSR 0 (11) 10(A) , No pain 13:23:00 67 12 100 34.8 174/77(108) NSR 0 (11) 10(A) , No pain 13:27:39 71 13 100 32.5 177/87(126) NSR 0 (11) 10(A) , No pain 13:32:26 67 12 100 34 154/70(119) NSR 0 (11) 10(A) , No pain 13:41:29 71 17 92 0 160/54(145) NSR 0 (11) 8(A) , No pain 13:44:51 72 14 99 0 163/73(117) NSR 0 (11) 8(A) , No pain 13:49:26 72 24 91 12.5 154/76(94) NSR 0 (11) 8(A) , No pain 13:54:52 68 15 95 15.5 123/78(107) NSR 0 (11) 8(A) , No pain 14:03:56 71 16 99 20.7 172/93(135) NSR 0 (11) 8(A) , No pain 14:08:39 69 15 100 17 183/84(136) NSR 0 (11) 8(A) , No pain 14:13:13 67 13 98 0 145/64(91) NSR 0 (11) 9(A) , No pain Medications Time Medication Route Dose Verified Delivered Reason Notes Effectiveness by by 13:14:27 0.9% NaCl I.V. 100 Ayden Ayden Per ml/hr Abraham Rosario physician RN RN 13:14:44 Oxygen etCO2 5 l/min Ayden Ayden for low 02 Nasal Lorigan Lorigan sats cannula RN RN 13:14:59 Heparin Flush added 2 bags Ayden Ayden for local Bag to Lorigan Lorigan anesthetic (1000units/500ml field RN RN NS) 13:15:22 Lidocaine 2% added 20ml Ayden Ayden for local to vial Lorigan Lorigan anesthetic field RN RN 13:30:05 Hurricaine [place] P.O. 1 Ayden Ayden for local Sprays Lorigan Lorigan anesthetic RN RN 13:32:53 Benadryl I.V. 50 mg Ayden Ayden Per Abraham Rosario physician RN RN 13:37:13 Refer to Ayden Ayden for sedation Anesthesia Notes Abraham Rosario for Sedation RN RN Medications 14:05:38 Radial Cocktail added 1 Ayden Hensley used for (Verapamil to syringe Lorigan Lorigan procedure 2mg/Nitro field RN RN 400mcg/Heparin 1500units) 14:09:14 Radial Cocktail I.A. 1 Ayden Farley for (Verapamil syringe Lorigan Tri vasodilation 2mg/Nitro RN 400mcg/Heparin 1500units) Procedure Log Time Note 12:55:27 Aldo Sheikh RT(R) sent for patient. Start room use. 12:58:43 Signed procedure consent form obtained from patient. 12:58:46 Diagnostic Cath status Elective 12:58:47 Time tracking: Regular hours (M-F 7:00 - 5:00) 12:58:50 Plan of Care:Hemodynamics will remain stable., Cardiac rhythm will remain stable., Comfort level will be maintained., Respiratory function will remain adequate., Patient/ family verbilizes understanding of procedure., Procedure tolerated without complication., Recovers from procedure without complications.. 12:58:59 H&P Date Dictated: 01/17/2019 Within 30 days and on chart., H&P Addendum completed by physician on day of procedure. (MUST COMPLETE FOR ALL OUTPATIENTS). 12:59:04 Patient allergic to No known allergies 13:04:06 Patient received from Pre/Post Procedure Room to CCL 1 Alert and oriented. Tansferred to table in Supine position. 13:04:08 Warm blankets applied, and sal hugger turned on for patient comfort. 13:04:09 Correct patient and procedure confirmed by team. 13:04:09 ECG and BP/O2 sat monitors applied to patient. 13:06:27 Vital chart was started 13:07:30 Baseline sample Acquired. 13:07:38 Rhythm: sinus rhythm 13:07:40 Full Disclosure recording started 13:07:41 Pre-procedure instructions explained to patient. 13:07:42 Pre-op teaching completed and patient verbalized understanding. 13:07:44 Family in waiting room. 13:07:47 Patient NPO since Midnight. 13:07:51 Is patient on blood thinner?No 13:07:53 Patient diabetic? Yes. 13:08:23 If diabetic: On Metformin? No 13:08:29 Previous problem with sedation/anesthesia? No ? 13:08:31 Snore? No 13:08:33 Sleep apnea? No 13:08:34 Deviated septum? No 13:08:35 Opens mouth fully? Yes 13:08:37 Sticks out tongue? Yes 13:08:39 Airway obstruction? No ? 13:08:42 Dentures? No ? 13:08:53 Modified Zhen's test Ulnar < 7 seconds 13:08:55 Pre procedure: right dorsailis pedis pulse 1+ Palpable, but thready & weak; easily obliterated 13:08:57 Patient pain scale 0/10 ?. 13:09:04 IV patent on arrival in right forearm with 0.9% NaCl at [facility]. 13:10: Lab Result : Creatinine 0.8 mg/dl 13:: Lab Result : BUN 23 mg/dl 13:10: Lab Result : Hemoglobin 13.2 g/dl 13:10:01 Lab Result : Hematocrit 38 % 13:10:30 Lab results completed and on chart. 13:14:27 0.9% NaCl 100 ml/hr I.V. was administered by Ayden Rosario RN; Per physician; 13:14:44 Oxygen 5 l/min etCO2 Nasal cannula was administered by Ayden Rosario RN; for low 02 sats; 13:14:59 Heparin Flush Bag (1000units/500ml NS) 2 bags added to field was administered by Ayden Rosario RN; for local anesthetic; 13:15:04 [facility] [place] Quality Assurance Supervisor Final present for OSMAN. 13:15:22 Lidocaine 2% 20ml vial added to field was administered by Ayden Rosario RN; for local anesthetic; 13:30:05 Hurricaine [place] 1 Sprays P.O. was administered by Ayden Rosario RN; for local anesthetic; 13:30:23 Shyam Bosch MD present and monitoring patient for TIVA. 13:32:53 Benadryl 50 mg I.V. was administered by Ayden Rosario RN; Per physician; 13:35:55 Physician arrived 13:35:56 --------ALL STOP TIME OUT------ 13:35:57 Final Timeout: patient, procedure, and site verified with staff and physician. All members of the team are in agreement. 13:36:03 Fire Safety Assessment: C--Open oxygen or nitrous oxide is being used. 13:36:07 Physical assessment completed. ASA score P 4 - A patient with severe systemic disease that is a constant threat to life as per Miguelito Bartlett MD. 13:36:10 Sedation plan: TIVA Medication:Propofol 13:37:13 Refer to Anesthesia Notes for Sedation Medications was administered by Ayden Rosario RN; for sedation; 13:38:23 Procedure started. 13:38:27 OSMAN started. 13:43:26 Vital chart was started 13:48:22 OSMAN completed. 13:49:09 Pt transferred to Cath table 13:50:34 Right Radial & Right Groin area was prepped with chlora-prep and draped in sterile fashion 13:50:36 Alarms reviewed by R. N. 13:50:37 Sharps counted by scrub and verified by R.N. 13:50:39 Use device set Radial Dx or PCI 13:50:40 ACIST Syringe (39158) opened to sterile field. 13:50:40 Medline Cath Pack ([id number]) opened to sterile field. 13:50:40 Bag Decanter (2002S) opened to sterile field. 13:50:41 ACIST Hand Control (97280) opened to sterile field. 13:50:42 ACIST Manifold (83936) opened to sterile field. 13:50:42 Tegaderm 4 x 4 (1626W) opened to sterile field. 13:50:42 MBrace Wrist Support ([id number]) opened to sterile field. 13:50:44 SHEATH 6FR Slender (801060) opened to sterile field. 13:50:45 DIAGNOSTIC WIRE .035 260cm J wire (803322) opened to sterile field. 14:04:23 Physician arrived 14:04:24 --------ALL STOP TIME OUT------ 14:04:24 Final Timeout: patient, procedure, and site verified with staff and physician. All members of the team are in agreement. 14:04:26 Right Radial & Right Groin site verified by team. 14:04:29 Maximum allowable Isovue 300 dose 300ml. Physician notified. (300ml for normal creatinines. For patients with creatinine of 1.7 or higher multiply weight(kg) x 5 divided by creatinine.) 14:04:32 Fire Safety Assessment: A--An alcohol-based skin anteseptic being used preoperatively., C--Open oxygen or nitrous oxide is being used., D--An ESU, laser, or fiber-optic light is being used. 14:04:35 Physical assessment completed. ASA score P 4 - A patient with severe systemic disease that is a constant threat to life as per Miguelito Bartlett MD. 14:04:38 Sedation plan: TIVA Medication:Propofol 14:05:38 Radial Cocktail (Verapamil 2mg/Nitro 400mcg/Heparin 1500units) 1 syringe added to field was administered by Ayden Rosario RN; used for procedure; 14:08:16 Procedure Started. 14:08:19 Local anesthetic to right radial artery with Lidocaine 2% by Miguelito Bartlett MD.INITIAL ACCESS ONLY 14:08:53 A 6 Fr Short sheath was inserted into the Right Radial artery 14:08:56 Zero performed for pressure channel P1 14:09:14 Radial Cocktail (Verapamil 2mg/Nitro 400mcg/Heparin 1500units) 1 syringe I.A. was administered by Miguelito Bartlett MD; for vasodilation; 14:09:37 A DIAGNOSTIC [place] 110cm 5 Fr catheter (207662) was advanced over the wire and used for Procedure. 14:11:54 LV gram done using MATSON 14:12:06 EF : 55 % 14:12:10 Injector settings: Ml/sec: 5, Volume: 15, 14:12:12 LV hemodynamics recorded. 14:12:15 LCA angiography performed. 14:12:29 TR BAND Standard ([id number]) opened to sterile field. 14:13:04 RCA angiography performed. 14:13:06 Catheter removed. 14:13:20 Sheath removed intact; hemostasis achieved with Mechanical Compression to the Right Radial artery. 14:13:21 Procedure ended.(Physican Out) 14:13:32 Fluoroscopy time 01.40 minutes. 14:13:36 Fluoroscopy dose: 172 mGy 14:13:36 Flurop Dose total: 172 14:13:40 Contrast amount:Isovue 300 29ml. 14:13:41 Sharps counted by scrub and verified by R.N. 14:13:43 TR band inflated with 11cc of air. 14:13:45 Insertion/operative site no bleeding no hematoma. 14:13:49 Post right radial artery:stable, soft, clean and dry 14:13:51 Post Procedure Pulses reassessed and unchanged 14:13:53 Post-procedure physical assessment completed. ASA score P 4 - A patient with severe systemic disease that is a constant threat to life as per Miguelito Bartlett MD. 14:13:56 Post procedure rhythm: unchanged. 14:13:59 Estimated blood loss: 5 ml 14:14:00 Post procedure instruction explained to patient.Patient verbalizes understanding. 14:14:01 Patient needs reinforcement of post procedure teaching. 14:14:16 Procedure type changed to Cath procedure, Diagnostic procedure, LHC, LHC w/Coronaries, OSMAN 14:15:33 Procedure and supply charges have been captured, reviewed, submitted and are correct. 14:15:37 Procedure Complication : No complications 14:15:48 Vital chart was stopped 14:15:49 See physician's report for complete and final results. 14:15:50 Report given to Pre/Post Procedure Room. 14:15:53 Patient transfered to Pre/Post Procedure Room with Stretcher. 14:15:54 Procedure ended. 14:15:54 Full Disclosure recording stopped 14:16:01 End room use (Document Last) Device Usage Item Name Manufacture Quantity Catalog Hospital Part Current Minimal Lot# / Number Charge Number Stock Stock Serial# Code ACIST Acist 1 89852 [id number] 725235 880264 20 Syringe Medical (35069) Systems Inc Medline Medline 1 [id number] 88914 422454 5 Cath Pack ([id number]) Bag Microtek 1 2001S 282750 72480 331733 5 Decanter Medical Inc. () ACIST Hand Acist 1 77179 750581 515081 725977 5 Control Medical (47344) Systems Inc ACIST Acist 1 87842 494509 548518 071987 5 Manifold Medical (33557) Systems Inc Tegaderm 4 3M 1 1626W 843245 815191 079974 5 x 4 (1626W) MBrace Advanced 1 140-0250-00 496866 47203 093535 5 Wrist Vascular Support Dynamics ([id number]) SHEATH 6FR Terumo 1 [id number] 912778 827656 674730 5 Slender (80-1060) DIAGNOSTIC St Mk 1 152526 897784 646651 408251 30 WIRE .035 260cm J wire (619974) DIAGNOSTIC Terumo 1 40-7733 734737 298168 254122 5 [place] 110cm 5 Fr catheter (777827) TR BAND Terumo 1 [id number] 134986 919667 318877 40 Standard ([id number]) Signature Audit [place] Stage Time Signature Unsigned Intra-Procedure 01/28/2019 Dada Neil 2:18:46 PM RT(R) Signatures Monitor : Dada Neil RT Signature : Date : Time : [place] [address] [place] [address]
[2019-01-28] MEDS ORDERED: MACRODANTIN50 MG PO (12:11)
[2019-01-28] MEDS ORDERED: CITRACAL + D E1 EACH PO (12:12)
[2019-01-28 12:24] VITALS: BP 169/60; Ht 165.1 cm; Wt 77.3 kg
[2019-01-28 12:41] LABS: BASOPHILS 0.2 % (0-2); EOSINOPHILS 1.9 % (0-7); HEMATOCRIT 38.3 % (36.0-48.0); HEMOGLOBIN 13.2 g/dL (12-16); LYMPHOCYTES 31.8 % (15-50); MCH 33.8 pg (26.0-34.0); MCHC 34.5 g/dL (31.0-37.0); MEAN PLATELET VOLUME 9.8 fL (7.4-10.4); MONOCYTES 7.2 % (2-11); NEUTROPHILS 58.9 % (40-80); PLATELET COUNT 143 10x3/uL (130-400); RBC 3.91 10x6/uL (4.00-5.40); RDW 13.1 % (11.5-14.5); WBC 4.7 10x3/uL (4.8-10.8)
[2019-01-28 12:48] LABS: ANION GAP 12.9 mmol/L (8-16); CARBON DIOXIDE 25.9 mmol/L (21.0-32.0); CREATININE - SERUM 0.8 mg/dL (0.6-1.3); POTASSIUM - SERUM 3.8 mmol/L (3.5-5.1)
--- NOTE | 2019-01-28 14:28 | NUR ---
PATIENT ARRIVED TO ROOM 3 OF CATH HOLDING. PATIENT PLACED ON 2L NC. RESPONDS TO VERBAL STIMULI. PHYSICIAN AT BEDSIDE TO UPDATE PATIENT AND FAMILY. RIGHT TR BAND IN PLACE. NO C/O PAIN, NUMBNESS, OR TINGLING.
--- NOTE | 2019-01-28 14:43 | NUR ---
PATIENT VOIDED PER BEDPAN WITH NO DIFFICULTY. VSS ON 2L NC. SPOUSE PRESENT AT BEDSIDE. RIGHT TR BAND IN PLACE, NO S/S OF BLEEDING OR HEMATOMA. PATIENT TOLERATING PO FLUIDS, NO N/V.
--- NOTE | 2019-01-28 15:05 | NUR ---
PATIENT RESTING, VSS ON ROOM AIR. RIGHT TR BAND IN PLACE, NO S/S OF BLEEDING OR HEMATOMA. NO C/O PAIN, NUMBNESS, OR TINGLING. NO SHORTNESS OF BREATH. SPOUSE PRESENT AT BEDSIDE.
--- NOTE | 2019-01-28 15:20 | NUR ---
BEGIN AIR REMOVAL PROTOCOL FOR TR BAND, NO S/S OF BLEEDING OR HEMATOMA. 4CC OF AIR REMOVED. WILL CONTINUE TO MONITOR. VSS ON ROOM AIR.
--- NOTE | 2019-01-28 15:50 | NUR ---
PATIENT VOIDED WITHOUT DIFFICULTY. IV REMOVED. REMAINING AIR REMOVED FROM TR BAND, NO S/S OF BLEEDING OR HEMATOMA. DRESSING IN PLACE IS CDI. VSS ON ROOM AIR. WRITTEN AND VERBAL EDUCATION GIVEN TO PATIENT AND SPOUSE REGARDING DISCHARGE INSTRUCTIONS AND MEDICATION COMPLIANCE, PATIENT VOICES UNDERSTANDING.
--- NOTE | 2019-01-28 16:15 | NUR ---
PATIENT TRANSPORTED VIA WHEELCHAIR TO CAR WITH SPOUSE DRIVING, ALL BELONGINGS WITH PATIENT.
--- NOTE | 2019-01-29 12:55 | OP ---
PATIENT NAME: BRAULIO KEENAN MEDICAL RECORD: [id number] :45 LOCATION:D.CAT ADMISSION DATE: SURGEON: COURTNEY HENDRIX MD DATE OF OPERATION: 01/28/2019 PROCEDURE: Left heart catheterization, selective coronary angiography, right radial approach. CATHETERS: [place] catheter, radial sheath. The procedure was well tolerated. The patient was returned to tomas. Sheath was removed. TR band was placed. FINDINGS: Left ventriculography in 30-degree MATSON view: Normal wall motion and normal systolic function, EF greater than or equal to 55%. A 3 to 4+ mitral regurgitation is noted. V-gram injection. CORONARY ANATOMY: LEFT MAIN: Left main is free of disease. LAD: Free of disease in the diagonal system. CIRCUMFLEX: Free of disease in the marginal system. RIGHT CORONARY ARTERY: Dominant artery, gives rise to PDA, free of disease. IMPRESSION: Severe MR. We will consult CV surgery for possible repair versus replacement. TRANSINT:[id number] Voice Confirmation ID: [id number] DOCUMENT ID: [id number] COURTNEY HENDRIX MD at 1255 CC: [id number] DICTATION DATE: 01/28/19 1424 STONE CARVER: 01/28/19 1534 DEP CLI 01/28/19 [facility] [address] [facility] [place] [address]
--- NOTE | 2019-01-29 12:55 | EC ---
PATIENT:BRAULIO KEENAN DATE OF SERVICE: 01/28/19 SEX: F MEDICAL RECORD: [id number] DATE OF : [birth year] LOCATION:D.CAT AGE OF PATIENT: 73 ADMISSION DATE: 01/28/19 REFERRING PHYSICIAN: INTERPRETING PHYSICIAN: COURTNEY HENDRIX MD ECHOCARDIOGRAM REPORT ECHO CHARGES Date: CLINICAL DIAGNOSIS: ECHOCARDIOGRAPHIC MEASUREMENTS (adult normal given) AC root (d.<3.7cm) cm LV Septum d (<1.2 cm> cm Valve Excursion cm LV Septum (systole) cm Left Atria (s.<4.0cm> cm LVPW d(<1.2cm) cm RV (d.<2.3cm) cm LVPW (sytole) cm LV diastole(<5.6CM) cm MV E-F(>70mm/sec) cm LV systole cm LVOT Diameter cm MV exc.(>10mm) cm Est.ejection fraction (50-75%) % DOPPLER: LVIT cm/sec A cm/sec E cm/sec LA cm/sec RVSP mmHg LVOT cm/sec AOP1/2T m/s Asc. Ao cm/sec RVOT cm/sec RA cm/sec PA cm/sec AV Gradient Peak mmHg AV Mean mmHg AV Area cm MV Gradient Peak mmHg MV Mean mmHg MV Area cm COMMENTS: Scientific Software Engineer: Ice Resurfacing Machine Operators: ANNETTE# Pericardial Effusion DATE OF SERVICE: 01/28/2019 PROCEDURE: OSMAN note. After general sedation via TIVA via anesthesia, transesophageal Omniplane probe was placed in the distal esophagus and proximal stomach without difficulty. No LVH. LV internal dimensions are normal. Wall motion is normal. EF is greater than or equal to 55%. The aortic valve is tricuspid with good valve excursion. Trace MR on color flow imaging. Left atrium does appear dilated. There is a posterior leaflet of both valves with severe MR by color flow imaging. ECHOCARDIOGRAM REPORT [id number] BRAULIO KEENAN Right-sided chambers appear grossly normal. Mild TR with color flow imaging. At the end of procedure, the probe was turned posteriorly and this showed no atherosclerotic debris in the descending aorta. TRANSINT:[id number] Voice Confirmation ID: [id number] DOCUMENT ID: [id number] COURTNEY HENDRIX MD at 3945 CC: [id number] DICTATION DATE: 01/28/19 1425 MEDICAID NURSE: 01/28/19 1537 DEP CLI 01/28/19 [facility] [address] [id number]
== END 2019-01-28 16:15 ==
LOC: D.CATH 11:28 → EDSTATUS 13:30 → D.CATH 16:15
PROVIDERS: ATTEND Internal Medicine Interventional Cardiology
DX: I34.0 Nonrheumatic mitral (valve) insufficiency (principal); Z01.812 Encounter for preprocedural laboratory examination

== ENCOUNTER 2019-03-14 09:00 | Inpatient (IN) | payer MEDICARE, BC ==
[~2019-03-14] VITALS: Ht 167.6 cm; Wt 81.6 kg
[~2019-03-14 09:00] MED LIST changes: +CITRACAL + D E1 EACH PO; +MACRODANTIN50 MG PO
[2019-03-14] MEDS ORDERED: OCUVITE (09:03)
[2019-03-14] MEDS ORDERED: CRANBERRY (09:04)
[2019-03-14 10:19] LABS: BASOPHILS 0.2 % (0-2); EOSINOPHILS 1.6 % (0-7); HEMATOCRIT 37.9 % (36.0-48.0); HEMOGLOBIN 12.8 g/dL (12-16); LYMPHOCYTES 26.6 % (15-50); MCH 33.2 pg (26.0-34.0); MCHC 33.8 g/dL (31.0-37.0); MCV 98.2 fL (80.0-100.0); MEAN PLATELET VOLUME 9.9 fL (7.4-10.4); MONOCYTES 6.5 % (2-11); NEUTROPHILS 65.1 % (40-80); PLATELET COUNT 155 10x3/uL (130-400); RBC 3.86 10x6/uL (4.00-5.40); RDW 13.1 % (11.5-14.5); WBC 6.3 10x3/uL (4.8-10.8)
[2019-03-14 10:23] LABS: APTT 26.4 SECONDS (22.8-39.4); INR 1.08 (0.85-1.17); PROTIME 13.5 SECONDS (11.6-15.0)
[2019-03-14 10:32] LABS: ALBUMIN 4.1 g/dL (3.4-5.0); ANION GAP 12.3 mmol/L (8-16); BILIRUBIN - TOTAL 1.1 mg/dL (0.2-1.3); CALCIUM 9.8 mg/dL (8.5-10.1); CARBON DIOXIDE 26.9 mmol/L (21.0-32.0); CREATININE - SERUM 1.2 mg/dL (0.6-1.3); PHOSPHOROUS 4.2 mg/dL (2.5-4.9); POTASSIUM - SERUM 4.2 mmol/L (3.5-5.1); PROTEIN - SERUM 7.5 g/dL (6.4-8.2); T4 THYROXIN - FREE 1.37 ng/dL (0.76-1.46); THYROID STIMULATING HORMONE 0.04 uIU/mL (0.36-3.74); URIC ACID 4.8 mg/dL (2.6-7.2)
[2019-03-14 11:48] LABS: APPEARANCE CLOUDY (CLEAR); BILIRUBIN NEGATIVE (NEGATIVE); COLOR YELLOW (YELLOW); GLUCOSE NEGATIVE (NEGATIVE); KETONE NEGATIVE (NEGATIVE); NITRITE NEGATIVE (NEGATIVE); PROTEIN NEGATIVE (NEGATIVE); SPECIFIC GRAVITY 1.015 (1.005-1.020); UROBILINOGEN NORMAL (NORMAL)
[2019-03-14 11:51] LABS: BACTERIA MANY /hpf (NONE SEEN); MUCUS <1+ /lpf (NONE SEEN); RED CELLS - URINE RARE /hpf (0-5)
[2019-03-18] VITALS (38 sets, daily range): BP systolic 96–138; BP diastolic 46–67; BMI 20.2; BMI 28.3
[2019-03-18] MEDS ORDERED: PRIMSOL50 MG/5 ML PO (06:09)
[2019-03-18 12:32] LABS: BASOPHILS 0.1 % (0-2); EOSINOPHILS 0.3 % (0-7); HEMATOCRIT 28.9 % (36.0-48.0); IMMATURE GRANULOCYTES 0.2 % (0-5); LYMPHOCYTES 9.5 % (15-50); MCH 32.7 pg (26.0-34.0); MCHC 34.6 g/dL (31.0-37.0); MCV 94.4 fL (80.0-100.0); MEAN PLATELET VOLUME 9.3 fL (7.4-10.4); MONOCYTES 10.1 % (2-11); NEUTROPHILS 79.8 % (40-80); PLATELET COUNT 131 10x3/uL (130-400); RBC 3.06 10x6/uL (4.00-5.40); RDW 14.7 % (11.5-14.5); WBC 11.5 10x3/uL (4.8-10.8)
[2019-03-18 12:39] LABS: INR 1.53 (0.85-1.17); PROTIME 17.8 SECONDS (11.6-15.0)
--- NOTE | 2019-03-18 13:23 | NUR ---
AFTER DRESSING ON CHEST TUBE CONTINUE TO FILL UP. DR MAYNARD CALLED. RETURNED TO ROOM. 1314 REOPEN CHEST.
[2019-03-18 13:34] LABS: INR 1.53 (0.85-1.17); PROTIME 17.8 SECONDS (11.6-15.0)
[2019-03-18 14:15] LABS: INR 1.42 (0.85-1.17); PROTIME 16.8 SECONDS (11.6-15.0)
--- NOTE | 2019-03-18 16:38 | NUR ---
DR MAYNARD BY TO SEE PATIENT. ASKED FOR EKG AT THIS TIME TO CHECK PT UNDERLYING RHYTHM. LOOKS LIKE JUNCTIONAL AT 70. SAYS IS OK TO KEEP TPM OFF WITH THE RHYTHM LONG PRESSURE SUSTAINS AND IT DOSEN'T DROP CCI. WILL NOTIFY HIM OF RESULTS. AWAITING PT/INR TO DETERMINE TO INFUSE MORE FFP.
[2019-03-18 16:45] LABS: INR 1.25 (0.85-1.17); PROTIME 15.1 SECONDS (11.6-15.0)
--- NOTE | 2019-03-18 19:25 | NUR ---
NOTIFIED OPF ABG'S, ORDERS RECEIVED TO EXTUBATE, RT RASHEEDA AT BEDSIDE AND EXTUBATED PT, NO ACUTE S/S OF DISTRESS, VSS, [facility] MORNING. WILL CONTINUE TO MONITOR PT
--- NOTE | 2019-03-18 19:25 | NUR ---
RESTRAINTS REMOVED S/P EXTUBATION
--- NOTE | 2019-03-18 20:00 | NUR ---
AND SON AT BEDSIDE, UPDATE GIVEN, NO FURTHER AT THIS TIME
--- NOTE | 2019-03-18 21:00 | NUR ---
CALLED [facility], UPDATE GIVEN, NO NEW ORDERS RECEIVED
--- NOTE | 2019-03-18 22:30 | NUR ---
NOTIFIED OF PT SUSTAINING HR 57-59bpm, OTHER VSS, NO NEW ORDERS RECEIVED, WILL CONTINUE TO MONITOR
--- NOTE | 2019-03-18 23:00 | NUR ---
REASSESSMENT COMPLETE SEE FLOW SHEET FOR FURTHER, PT RESTING WITH EYES CLOSED, WAKES WITH MINIMAL VERBAL STIMULI, DENIES PAIN AT THIS TIME, DRSG'S C/D/I I/S COMPLETED GOOD EFFORT 500-750ML x10, VSS, WILL CONTINUE TO MONITOR
[2019-03-19] VITALS (55 sets, daily range): BP systolic 102–142; BP diastolic 37–59; Ht 167.6 cm; Wt 81.6 kg
--- NOTE | 2019-03-19 03:00 | NUR ---
REASSESSMENT COMPLETE SEE FLOW SHEET FOR FURTHER, NO ACUTE S/S OF DISTRESS NOTED, PT SLEEPING WITH EYES CLOSED, WAKES WITH VERBAL STIMULI AAOx4, ALL DRSG'S C/D/I, CTx3 TO 20CM SUCTION, NO AIR LEAK NOTED, VSS, I/S COMPLETED WITH GOOD EFFORT 500-750ML x10, WILL CONTINUE TO MONITOR
--- NOTE | 2019-03-19 03:20 | NUR ---
NOTIFIED OF UOP BELOW 50ML/HR x2hr. PER ORDERS, NO NEW ORDERS RECEIVED, WILL CONTINUE TO MONITOR
--- NOTE | 2019-03-19 05:00 | NUR ---
PT C/O INCISIONAL PAIN, PAIN MED GIVEN SEE MAR FOR FURTHER, VSS, REPOSITIONED FOR COMFORT, WILL CONTINUE TO MONITOR
[2019-03-19 06:20] LABS: HEMATOCRIT 27.3 % (36.0-48.0); HEMOGLOBIN 9.4 g/dL (12-16); MCH 30.8 pg (26.0-34.0); MCHC 34.4 g/dL (31.0-37.0); MEAN PLATELET VOLUME 9.5 fL (7.4-10.4); RBC 3.05 10x6/uL (4.00-5.40); RDW 17.4 % (11.5-14.5)
[2019-03-19 06:25] LABS: MCV 89.5 fL (80.0-100.0)
[2019-03-19 06:45] LABS: ALBUMIN 2.7 g/dL (3.4-5.0); ANION GAP 13.3 mmol/L (8-16); BILIRUBIN - TOTAL 1.58 mg/dL (0.2-1.3); CALCIUM 8.2 mg/dL (8.5-10.1); CARBON DIOXIDE 27.8 mmol/L (21.0-32.0); CREATININE - SERUM 0.8 mg/dL (0.6-1.3); POTASSIUM - SERUM 4.1 mmol/L (3.5-5.1); PROTEIN - SERUM 5.2 g/dL (6.4-8.2)
--- NOTE | 2019-03-19 07:00 | NUR ---
REPORT RECIEVED FROM THE OFF GOING RN. SEE ASSESSMENT IN THE PTS FLOW SHEET. PT A&OX4 AND LYING IN BED. VSS AT THIS TIME. ACCELERATED JUNCTIONAL 60-65 BPM. PT ON 4L VIA O2. PT INSTRUCTED TO USE IS 10X'/H AND TO TCDB Q1 HOUR. EDUCATION PROVIDED. SWAN-PHYLICIA CATH NOTED ABOUT 52 CM RIGHT IJ. DRESSING C/D/I. MIDSTERNAL DRESSING C/D/I. SUBSTERNAL DRESSING C/D/I. CTX3 NOTED ALL TO 20 CM OF H2O SUCTION WITH NO AIR LEAK NOTED. TPM WIRES CONNECTED TO THE PACEMAKER BUT PACE MAKER TURNED OFF PER DR MAYNARD. RIGHT LUZ DRESSING C/D/I. GOOD WAVE FORM. WRIST PROTECTOR ON. FC NOTED WITH YELLOW CONCETRATED URINE. UOP MARGINAL AND DR MAYNARD AWARE PER LIEUTENANT COLONEL NURSE. BLE EDEMA NOTED. SCD'S AND ANSELMO HOSE ON BILATERALY. PT DENIES PAIN AT THIS TIME. CALL LIGHT IN REACH. WILL CONT POC.
--- NOTE | 2019-03-19 08:27 | NUR ---
DR MAYNARD AT THE PTS BEDSIDE. OK TO AMADA OLMOS, GET THE PT OOB AND INTO A BEDSIDE CHAIR, PUT CT TO WATER SEAL AND TO LEAVE THE FC.
--- NOTE | 2019-03-19 08:34 | NUR ---
FLUID CHALANGE PER DR MAYNARD. 200/H X1 FOR UOP.
--- NOTE | 2019-03-19 09:30 | NUR ---
SWAN-PHYLICIA DC'D PER ORDERS. PT TOLERATED WELL. LUZ DC'D WITH THE CATHETER TIP INTACT. DRESSING APPLIED. RIGHT AC PIV DC WITH THE CATHETER TIP INTACT. CT ON WATER SEAL. PT TOLERATED WELL. VSS WILL CONT POC.
[2019-03-19 09:41] LABS: INR 1.19 (0.85-1.17); PROTIME 14.6 SECONDS (11.6-15.0)
--- NOTE | 2019-03-19 10:22 | NUR ---
SPOKE WITH KACIE SWEET ABOUT THE PT BEING IN ACCELERATED JUNCTION RHYTHM. ORDERS TO HOLD PO AMIODORONE.
--- NOTE | 2019-03-19 11:30 | NUR ---
FULL CHD BATH GIVEN. SUBSTERNAL DRESSING CHANGED. CT X3 INTACT. NO S/SX OF INFECTION NOTED. TPM WIRES NOTED. PT ASSISTED OOB AND INTO THE BEDSIDE CHAIR. PT TOLERATED WELL. CALL LIGHT IN REACH. VSS AT THIS TIME. WILL CONT POC.
--- NOTE | 2019-03-19 14:00 | NUR ---
REPORT RECEIVED. PATEINT AWAKE AND ALERT UP IN CHAIR AT BEDSIDE. STATES PAIN IS BETTER. NO DISTRESS. CHEST TUBES X3 TO WATER SEAL DRAINAGE. ALMARAZ CATH PATENT. RIJ CENTRAL LINE INFUSING WITH PLAMALYTE AT 100 ML HOUR, ZINCEF AT 11.4 ML HOUR. MONITOR JUNCTIONAL RHYTHM.
--- NOTE | 2019-03-19 16:00 | NUR ---
NO CHANGE NAPPING AT INTERVALS. NO DISTRESS.
--- NOTE | 2019-03-19 16:30 | NUR ---
RETURNED TO BED ABLE TO STAND WITH ASSISTANCES. NEEDS HELP TO MAINTAIN GAIT. TOLERATED FAIR.
--- NOTE | 2019-03-19 17:00 | NUR ---
CHEST TUBES PULLED BY DR. KEENE. PATIENT TOLERATED FAIR. DRESSING APPLIED
--- NOTE | 2019-03-19 17:14 | OP ---
PATIENT NAME: BRAULIO KEENAN MEDICAL RECORD: [id number] :45 [facility] ADMISSION DATE:03/18/19 SURGEON: FRANCISCO MAYNARD MD DATE OF OPERATION: 03/18/2019 SURGEON: Francisco Maynard MD ADVERTISING AGENT: Arvind Dailey OPERATION PERFORMED: Mitral valve replacement (31-mm pericardial bioprosthesis). PREOPERATIVE DIAGNOSIS: Mitral regurgitation. POSTOPERATIVE DIAGNOSES: Mitral regurgitation plus coagulopathy. ANESTHESIA: General endotracheal anesthesia. ESTIMATED BLOOD LOSS: Total cardiopulmonary bypass and Cell Saver with 5 packed red blood cells, 2 platelets, and 4 FFP. COMPLICATIONS: Coagulopathy. CONDITION: Stable. SPECIMEN: Mitral valve leaflets. DISPOSITION: ICU. OPERATIVE FINDINGS: 1. Transesophageal echocardiography confirmed irregular severe mitral regurgitation with elongated and thickened anterior and posterior leaflet. After replacement of the mitral valve, there was no perivalvular leak. There was mild aortic insufficiency prior to valve replacement and not after valve replacement. 2. The heart was a normal-sized heart with a good-sized atrium. The lateral portion of the posterior leaflet was severely calcified and fused with calcium extending down into the mitral valve annulus, restricting mobility and allowing a severe regurgitant jet from the anterior leaflet. The anterior and posterior leaflets were severely thickened with elongated chordee. The valve sutures placed in the calcified portion were placed superior to the calcium, taking care not to injure the portion of the calcium in the annulus and the valve seated well. 3. After closing the chest, the patient had significant hemorrhage through the chest tubes, and after resuscitation and correction of coagulopathy, the chest was reopened with findings of bleeding from a sternal wire site, which was oversewn and all intrapericardial contents and cannulation sites again inspected with no bleeding as well as transesophageal echocardiography replaced with good valvular function and normal ejection fraction with good contractility. INDICATION FOR OPERATION: Worsening dyspnea and mitral regurgitation. PROCEDURE NOTE IN DETAIL: The patient was brought to the operating suite. General anesthesia was obtained. The patient was prepped and draped. Median sternotomy incision was made. Subcutaneous tissue was divided with OPERATIVE REPORT [id number] RADHA KEENANESE UMA electrocautery. Sternum was divided with a saw. The pericardium was opened. Superior and inferior vena cava were freed. Heparin was given. Aorta was cannulated. Bicaval cannulation was performed. Retrograde cardioplegia cannula was inserted. Activated clotting time was appropriately elevated. The patient was placed on cardiopulmonary bypass and cooled. Antegrade cardioplegia was given through a 14-gauge angiocatheter. Cross-clamp was placed. Cardioplegia was given antegrade and retrograde. Retrograde was repeated at 15- to 20-minute intervals during the cross-clamp time. Dissection was made in the interatrial groove and the left atrium was entered. A small opening into the right atrium was oversewn with Prolene. The valve was visualized and after careful inspection, especially of the calcified portion, it was felt unable to have a good long-term result with repair. Therefore, the anterior leaflet was removed and most of the posterior leaflet, especially above the calcium, preserving as much as possible of the remaining portions of the posterior leaflet. Thorough irrigation was undertaken to remove all loose calcified superficial debris and then the valve was sized appropriately. Interrupted pledgeted sutures were placed on the atrial side, taking care to gather the posterior valve leaflet apparatus to prevent subvalvular occlusion, and then the sutures were placed through the sewing ring. Sutures were individually tied or cinched down with a COR-KNOT system and the valve was seated well. On inspecting the valve, there was no obstruction. The patient was rewarmed. Atriotomy was closed. Left ventricular apex was de-aired. Cross-clamp was removed. Aortic root vent was removed and oversewn. Retrograde was removed. The site was oversewn. The patient was fully rewarmed, weaned from cardiopulmonary bypass, and was stable. The patient was decannulated. Cannula sites were oversewn. Protamine was given. Thorough irrigation was undertaken. Hemostasis was ensured and the pericardium was approximated over the aorta. Right chest had been entered on opening the chest and it was evacuated and a chest tube was placed in the right chest, in the mediastinum. Sternum was closed with wires. Wire sites were inspected for bleeding and there was none, but there was some from the edges of the sternal marrow. The patient was stable once the sternum was closed. Fascia was closed. Subcutaneous tissue was closed. Skin was closed. Dermabond was placed, and needle and sponge counts were reported as correct. The patient had continued oozing and bleeding from both chest tubes including the one that was mostly in the right chest and situated to the right. Therefore, the patient was reprepped. The Dermabond was removed, sutures were removed, wires were removed, and a bleeding wire site to the right just over the last opening in the intrapleural chest tube was found. It was controlled with suture. The pericardium was opened. Thorough irrigation was undertaken. A small amount of clotted blood was removed and there was no further bleeding. There was coagulopathy with an elevated INR, was corrected with FFP. Edge of the sternum again had some bleeding, and after about an hour of observation, a larger chest drain was placed. The patient was stable. Sternum was closed with wires and again inspected for bleeding. Fascia was closed. Subcutaneous tissue was closed subcuticular. Dermabond was placed. Needle and sponge count was reported as correct. The patient was taken to the ICU in stable condition. TRANSINT:[id number] Voice Confirmation ID: [id number] DOCUMENT ID: [id number] OPERATIVE REPORT [id number] BRAULIO KEENAN, FRANCISCO Mccrary MD at 1714 CC: [place] M.D. and DARYA APPLE [id number] DICTATION DATE: 03/18/19 1612 TOOL CRIB SUPERVISOR: 03/18/192023 ADM IN [address] [id number]
--- NOTE | 2019-03-19 18:00 | NUR ---
CREAM OF CHICKEN SERVED AT PATIENT REQUEST. ATE HALF. ORAL CARE DONE AFTER MEAL. DRESSING DRY AND INTACT. ALMARAZ CATH PATENT.
--- NOTE | 2019-03-19 21:30 | NUR ---
FAMILY AT BEDSIDE. PT HAS NO NEEDS AT THIS TIME. SWALLOWS PO MEDS W/O DIFFICULTY. GIVEN PAIN MED PER REQUEST.
--- NOTE | 2019-03-19 23:00 | NUR ---
RYTHMN CHANGE TO NSR WITH ST DEPRESSION
[2019-03-20] VITALS (27 sets, daily range): BP systolic 98–130; BP diastolic 33–58
--- NOTE | 2019-03-20 06:00 | NUR ---
DRSG CHANGE COMPLETE. OOB TO CHAIR. AMBULATES WITH ASSISTANCE. VERY WEAK.
[2019-03-20 06:09] LABS: HEMATOCRIT 26.8 % (36.0-48.0); HEMOGLOBIN 9.2 g/dL (12-16); MCH 31.3 pg (26.0-34.0); MCHC 34.3 g/dL (31.0-37.0); MCV 91.2 fL (80.0-100.0); MEAN PLATELET VOLUME 9.8 fL (7.4-10.4); PLATELET COUNT 77 10x3/uL (130-400); RBC 2.94 10x6/uL (4.00-5.40); RDW 17.4 % (11.5-14.5); WBC 9.3 10x3/uL (4.8-10.8)
[2019-03-20 06:38] LABS: ALBUMIN 2.6 g/dL (3.4-5.0); ALKALINE PHOSPHATASE 41 U/L (46-116); ALT (SGPT) 26 U/L (10-68); BILIRUBIN - TOTAL 1.38 mg/dL (0.2-1.3); CALC OSMOLALITY 274 mosm/kg (275-300); CALCIUM 7.7 mg/dL (8.5-10.1); CARBON DIOXIDE 28.5 mmol/L (21.0-32.0); CHLORIDE - SERUM 103 mmol/L (98-107); CREATININE - SERUM 0.6 mg/dL (0.6-1.3); GLUCOSE 134 mg/dL (74-106); POTASSIUM - SERUM 3.7 mmol/L (3.5-5.1); PROTEIN - SERUM 5.2 g/dL (6.4-8.2); SODIUM 137 mmol/L (136-145); eGFR NON AFRICAN AMERICAN > 90 mL/min (90-120)
[2019-03-20 06:40] LABS: UREA NITROGEN 10 mg/dL (7-18)
--- NOTE | 2019-03-20 07:00 | NUR ---
REPORT RECEVEID FROM THE OFF GOING RN. SEE ASSESSMENT IN THE PTS FLOW SHEET. PT SITTING UPRIGHT IN THE BEDSIDE CHAIR. ACCELERATED JUNTIONAL RATE [address] DEPRESSION NOTED. VSS. PT DENIES PAIN AT THIS TIME. BREAKFAST TRAY PROVIDED FOR THE PT. CALL LIGHT IN REACH. WILL CONT POC.
[2019-03-20 09:55] LABS: PLATELET ESTIMATE DECREASED
--- NOTE | 2019-03-20 10:37 | NUR ---
PT CONTINUES TO USE HER IS 10X'S/H.
--- NOTE | 2019-03-20 12:30 | NUR ---
LUNCH TRAY PROVIDED FOR THE PT. VSS. DENIES PAIN. WILL CONT POC.
--- NOTE | 2019-03-20 17:45 | NUR ---
DR MAYNARD IN THE UNIT. OK TO PULL FC OUT AND AMBULATE THE PT ONCE SHE IS DONE WITH HER DINNER.
--- NOTE | 2019-03-20 19:02 | NUR ---
FC DC'D PER ORDERS. AMBULATED WITH THE PT FROM HER BED TO THE NURSING STATION AND BACK. PT TOLERATED WELL. PT ASSISTED BACK INTO BED.
--- NOTE | 2019-03-20 19:47 | NUR ---
REPORT RECEIVED, SHIFT ASSESSMENT COMPLETED PER FLOW SHEET. AAOX4. PPP. RT IJ CVL PATENT, SALINE LOCKED, DRESSING C/D/I. DENIES NEEDS. CALL LIGHT WITHIN REACH. COUGH/DEEP BREATHING AND USE OF IS ENCOURAGED. SEE FLOW SHEET FOR COMPLETE ASSESSMENT. WILL CONTINUE TO MONITOR.
--- NOTE | 2019-03-20 21:08 | NUR ---
SCHEDULED MEDS GIVEN, WATER PROVIDED, NO DIFFICULTY SWALLOWING. ASSISSTED OOB TO BEDSIDE COMMODE, VOID X1. ASSISSTED BACK IN BED. DENIES OTHER NEEDS. CALL LIGHT WITHIN REACH. WILL CONTINUE TO MONITOR.
[2019-03-20 21:33] LABS: MAGNESIUM - SERUM 2.3 mg/dL (1.8-2.4); POTASSIUM - SERUM 3.8 mmol/L (3.5-5.1)
--- NOTE | 2019-03-20 23:18 | NUR ---
REASSESSMENT COMPLETED PER FLOW SHEET, SEE FOR DETAILS. NO ACUTE DISTRESS NOTED. DENIES NEEDS. CALL LIGHT WITHIN REACH. WILL CONTINUE TO MONITOR.
[2019-03-21] VITALS (24 sets, daily range): BP systolic 99–135; BP diastolic 43–110
--- NOTE | 2019-03-21 01:07 | NUR ---
CALL LIGHT ANSWERED, ASSISSTED OOB TO BEDSIDE COMMODE, 130 MLS YELLOW UOP. ASSISSTED BACK IN BED. DENIES OTHER NEEDS. CALL LIGHT WITHIN REACH. WILL CONTINUE TO MONITOR.
--- NOTE | 2019-03-21 03:25 | NUR ---
REASSESSMENT COMPLETED PER FLOW SHEET, SEE FOR DETAILS. NO ACUTE DISTRESS NOTED. DENIES NEEDS AT THIS TIME. CALL LIGHT WITHIN REACH. WILL CONTINUE TO MONITOR.
--- NOTE | 2019-03-21 04:28 | NUR ---
PATIENT IN UNCONTROLLED AFIB. CALLED AND SPOKE TO DR. MAYNARD, NEW ORDERS RECEIVED TO GIVE LOPRESSOR 2.5 MG AND TO CALL HIM IF HR >120 AFTER 30 MINS.
--- NOTE | 2019-03-21 05:00 | NUR ---
HR 109, REMAINS IN AFIB, WILL CONTINUE TO MONITOR. PATIENT DENIES NEEDS. CALL LIGHT WITHIN REACH.
--- NOTE | 2019-03-21 06:00 | NUR ---
COMPLETE BED BATH GIVEN. ASSISSTED OOB TO CHAIR. CALL LIGHT AND BELONGINGS WITHIN REACH. WATER PROVIDED PER PATIENT'S REQUEST. DENIES OTHER NEEDS. CALL LIGHT WITHIN REACH. WILL CONTINUE TO MONITOR.
--- NOTE | 2019-03-21 06:11 | NUR ---
PATIENT CONVERTED TO JUNCTIONAL RHYTHM, HR 67.
[2019-03-21 07:12] LABS: HEMATOCRIT 27.8 % (36.0-48.0); HEMOGLOBIN 9.4 g/dL (12-16); MCHC 33.8 g/dL (31.0-37.0); MCV 91.7 fL (80.0-100.0); MEAN PLATELET VOLUME 9.4 fL (7.4-10.4); RBC 3.03 10x6/uL (4.00-5.40); WBC 7.4 10x3/uL (4.8-10.8)
[2019-03-21 07:31] LABS: ALBUMIN 2.7 g/dL (3.4-5.0); ALKALINE PHOSPHATASE 50 U/L (46-116); ALT (SGPT) 27 U/L (10-68); BILIRUBIN - TOTAL 1.33 mg/dL (0.2-1.3); CALC OSMOLALITY 273 mosm/kg (275-300); CALCIUM 7.9 mg/dL (8.5-10.1); CHLORIDE - SERUM 104 mmol/L (98-107); CREATININE - SERUM 0.6 mg/dL (0.6-1.3); GLUCOSE 120 mg/dL (74-106); POTASSIUM - SERUM 3.6 mmol/L (3.5-5.1); PROTEIN - SERUM 5.7 g/dL (6.4-8.2); SODIUM 137 mmol/L (136-145); UREA NITROGEN 11 mg/dL (7-18); eGFR NON AFRICAN AMERICAN > 90 mL/min (90-120)
--- NOTE | 2019-03-21 09:34 | NUR ---
0700 REPORT RECIEVED, PT AAOX4, UP IN CHAIR. SUBSTERNAL INCISION CDI, MIDSTERNAL DRESSING CDI, RIGHT IJ PATENT, SALINE LOCK, CDI, NC AT 3L, NORMAL SINUS RHYTHM, TPM WIRES ATTACHED BUT NOT TURNED ON 0900 AM MEDS TAKEN, BREAKFAST EATEN IN CHAIR.
--- NOTE | 2019-03-21 10:13 | NUR ---
PT FIB RATE OF 140'S, ASSISTED BACK TO BED, DR SARGENT NURSE KACIE NOTIFIED
--- NOTE | 2019-03-21 13:06 | NUR ---
Nutrition Follow Up: Pt was asleep at the time of RD visit. Interview deferred at this time. Diet: Clears AAT Regular PO Intake: 35% meal avg BM: 03/18/19 I>O Labs reviewed Meds noted including Lasix, Humalog Rec continue advancing ALISHA as medically feasible. RD following.
--- NOTE | 2019-03-21 13:19 | NUR ---
NOTIFIED DR SARGENT NURSE KACIE OF PAUSES IN HR WHEN CONVERTING BETWEEN NSR/AFIB OF APPROX 1.5-2 SECONDS, TOLD TO NOTIFY IF LONGER THAN 2 SECONDS, IMMEDIATLY FOLLOWED BY A PAUSE OF 2.5 SECONDS, KACIE RN NOTIFIED WITH ORDERS TO DC AMIO GTT, AMIO GTT STOPPED, HR THEN BETWEEN AFIB AND NSR/JUNCTIONAL, DROPPING TO 58, ATTEMPTED TO TURN ON TPM WITH VMA UNABLE TO CAPTURE, TPM TURNED OFF, CRASH CART IN ROOM, SPOKE WITH DR MAYNARD WHO STATED HE WOULD BE IN UNIT SHORTLY.
--- NOTE | 2019-03-21 15:00 | NUR ---
PT IN BED WITH JUNCTIONAL RHYTHM
--- NOTE | 2019-03-21 16:04 | MORECARE ---
CASE MANAGEMENT DISCHARGE SUMMARY PATIENT: BRAULIO KEENAN UNIT: [id number] ADM DATE: 03/18/19 AGE: 73 : 45 SEX: F ROOM/BED: [facility] AUTHOR: JOHN ORTIZ PHYSICIAN: REFERRING PHYSICIAN: ANDREE MAYNARD MD DATE OF SERVICE: 03/21/19 Discharge Plan Patient Name: BRAULIO KEENAN Facility: [facility]:[place] : 1945 Planned Disposition: Anticipated Discharge Date: Discharge Date: Expected LOS: Initial Reviewer: [email or web address] Initial Review Date: 03/21/2019 Generated: 03/21/19 5:04 pm Comments DCP- Discharge Planning Updated by [email or web address]: Jaja Warren on 03/21/19 2:[address] Patient Name: BRAULIO KEENAN Admission Status: Elective Accout number: [id number] Admission Date: 03-18-2019 : 1945 Admission Diagnosis:NONRHEUMATIC MITRAL (VALVE) PROLAPSE Attending: ANDREE MAYNARD Current LOS: 3 Anticipated DC Date: Planned Disposition: Primary Insurance: MEDICARE A & B Discharge Planning Comments: CM MET WITH PATIENT ABOUT DC PLANNING/NEEDS. RESOURCES FOR POST DISCHARGE OFFERED TO PATIENT. STATES NO NEEDS AT THIS TIME. WILL DC TO HOME WITH FAMILY. CM TO FOLLOW AND ASSIST NEEDED WITH DC PLANNING/NEEDS. Machine Packaging Technician: Jaja Warren DCPIA - Discharge Planning Initial Assessment Updated by [email or web address]: Jaja Warren on 03/21/19 3:57 pm * Is the patient Alert and Oriented? Yes * PCP REIVES * Pharmacy [facility] * Preadmission Environment Home with Family * ADLs Independent * Equipment None * List name and contact numbers for known caregivers / representatives who currently or will assist patient after discharge: LELAND, SPOUSE, * Community resources currently utilized None * Additional services required to return to the preadmission environment? No * Can the patient safely return to the preadmission environment? Yes * Has this patient been hospitalized within the prior 30 days at any hospital? No Patient Name: BRAULIO KEENAN Page [id number] at 1604 All edits/amendments must be made on the electronic document DICTATION DATE: 03/21/191602 WATERSHED ENGINEER: AILYN 03/21/191602 RPT#: [id number] DC DATE: STATUS: ADM IN [facility] [address] [place] [address] END OF REPORT
--- NOTE | 2019-03-21 17:18 | NUR ---
PT BACK IN AFIB RATE 130-140S, DR MAYNARD NOTIFIED WITH ORDERS FOR IV LOPRESSORE, GIVEN PER EMAR
--- NOTE | 2019-03-21 17:40 | NUR ---
PT IN SINUS RHYTHM 70s, DR MAYNARD NOTIFIED WITH ORDERS FOR PO LOPRESSOR
--- NOTE | 2019-03-21 19:00 | NUR ---
PT IN BED IN LOW FOWLERS POSITION. SHIFT ASSESSMENT COMPLETE. VS STABLE AND AFEBRILE. NO VISUAL CUES OF DISTRESS NOTED. WILL CONTINUE TO MONITOR.
--- NOTE | 2019-03-21 21:00 | NUR ---
VS STABLE. NO VISUAL CUES OF DISTRESS NOTED. WILL CONTINUE TO MONITOR.
[2019-03-21 22:02] LABS: MAGNESIUM - SERUM 2.2 mg/dL (1.8-2.4); POTASSIUM - SERUM 3.8 mmol/L (3.5-5.1)
--- NOTE | 2019-03-21 22:11 | NUR ---
DR MAYNARD INFORMED OF PT STATUS ORDER FOR MED GIVEN SEE ARBEN GALVEZ WILL CONTINUE TO MONITOR.
[2019-03-22] VITALS (25 sets, daily range): BP systolic 87–164; BP diastolic 37–93
--- NOTE | 2019-03-22 01:00 | NUR ---
VS STABLE. NO VISUAL CUES OF DISTRESS NOTED. WILL CONTINUE TO MONITOR.
--- NOTE | 2019-03-22 03:00 | NUR ---
VS STABLE. NO VISUAL CUES OF DISTRESS NOTED. WILL CONTINUE TO MONITOR.
--- NOTE | 2019-03-22 04:28 | NUR ---
DR MAYNARD INFORMED OF PT STATUS. ORDER RECEIVED SEE MAR WILL CONTINUE TO MONITOR.
--- NOTE | 2019-03-22 05:00 | NUR ---
VS STABLE. NO VISUAL CUES OF DISTRESS NOTED. WILL CONTINUE TO MONITOR.
[2019-03-22 06:14] LABS: HEMATOCRIT 26.5 % (36.0-48.0); HEMOGLOBIN 8.7 g/dL (12-16); MCH 30.6 pg (26.0-34.0); MCHC 32.8 g/dL (31.0-37.0); MCV 93.3 fL (80.0-100.0); MEAN PLATELET VOLUME 10.2 fL (7.4-10.4); RBC 2.84 10x6/uL (4.00-5.40); RDW 16.5 % (11.5-14.5)
[2019-03-22 06:15] LABS: WBC 5.2 10x3/uL (4.8-10.8)
--- NOTE | 2019-03-22 06:30 | NUR ---
PT IN BED IN LOW FOWLERS POSITION. SHIFT ASSESSMENT COMPLETE. VS STABLE AND AFEBRILE. NO VISUAL CUES OF DISTRESS NOTED. WILL CONTINUE TO MONITOR.
--- NOTE | 2019-03-22 06:36 | NUR ---
VS STABLE. NO VISUAL CUES OF DISTRESS NOTED. WILL CONTINUE TO MONITOR.
--- NOTE | 2019-03-22 06:36 | NUR ---
VS STABLE. NO VISUAL CUES OF DISTRESS NOTED. WILL CONTINUE TO MONITOR.
[2019-03-22 06:44] LABS: ALBUMIN 2.3 g/dL (3.4-5.0); ALKALINE PHOSPHATASE 44 U/L (46-116); ALT (SGPT) 27 U/L (10-68); BILIRUBIN - TOTAL 0.98 mg/dL (0.2-1.3); CALC OSMOLALITY 277 mosm/kg (275-300); CALCIUM 7.6 mg/dL (8.5-10.1); CARBON DIOXIDE 27.7 mmol/L (21.0-32.0); CHLORIDE - SERUM 106 mmol/L (98-107); CREATININE - SERUM 0.6 mg/dL (0.6-1.3); GLUCOSE 105 mg/dL (74-106); POTASSIUM - SERUM 3.9 mmol/L (3.5-5.1); PROTEIN - SERUM 5.2 g/dL (6.4-8.2); SODIUM 139 mmol/L (136-145); UREA NITROGEN 12 mg/dL (7-18); eGFR NON AFRICAN AMERICAN > 90 mL/min (90-120)
--- NOTE | 2019-03-22 07:00 | NUR ---
REC'D AWAKE/ALERT, UP IN CHAIR, CM- UCAFIB. VSS OTHERWISE.
--- NOTE | 2019-03-22 07:03 | NUR ---
CM NOW SR W/PACs 6Os.
--- NOTE | 2019-03-22 07:45 | NUR ---
ASSESSED, DENIES PAIN OR OTHER NEED AT THIS TIME.
--- NOTE | 2019-03-22 08:00 | NUR ---
FAMILY IN AND UPDATED.
--- NOTE | 2019-03-22 09:10 | NUR ---
DR MAYNARD NOTIFIED OF UCAFib AFTER GETTING UP TO BSC. HE STATES HE IS AWARE AND THAT SHE CAN BE UP IN CHAIR AND WALK W/PT.
--- NOTE | 2019-03-22 09:12 | NUR ---
CM- UCAFib 140s-160'S, ASYMPTOMATIC.
--- NOTE | 2019-03-22 10:18 | NUR ---
REMAINS IN UCAFib- STILL SITTING IN CHAIR W/ EYES CLOSED/RESP UNLABORED.
--- NOTE | 2019-03-22 11:15 | NUR ---
REASSESSED- NO REAL CHANGE. VSS ON ASHLEY. INSULIN GTT CONT. PLEASANT.
--- NOTE | 2019-03-22 12:00 | NUR ---
DR MAYNARD ROUNDS- ORDER REC'D. REASSESSED. CM VARIES- UCAFib TO SR W/ PACs.
--- NOTE | 2019-03-22 12:45 | NUR ---
DR GRACIE GARG. DR MAYNARD STILL ON UNIT- ORDER FOR LOPRESSOR IVP REC'D.
--- NOTE | 2019-03-22 14:00 | NUR ---
BACK TO BED AFTER UP TO BSC/ BATHED/ ANSELMO HOSE OFF/ WALK IN [place]. CM SHOWS UCAFIB 160- 170S IMMEDIATELY AFTER AMBULATING- MILDLY SOB.
--- NOTE | 2019-03-22 15:00 | NUR ---
REASSESSED. REMAINS IN UCAFib 120-150s. ASYMPTOMATIC.
--- NOTE | 2019-03-22 15:30 | NUR ---
RESTING W/ EYES CLOSED/ RESP UNLABORED.
--- NOTE | 2019-03-22 16:50 | NUR ---
UP TO BSC THEN CHAIR FOR MEAL- IMMEDIATELY GOES INTO UCAFib 120-160s. ASYMPTOMATIC- STATES "I'M FINE." FAMILY VISITS.
--- NOTE | 2019-03-22 17:35 | NUR ---
HR GREATLY VARIABLE- UCAFib 100-150s- REMAINS ASYMPTOMATIC.
--- NOTE | 2019-03-22 18:20 | NUR ---
DR MAYNARD NOTIFIED OF CONT'D UCAFib 120-160s FOR MOST OF LAST 1 1/2 HOURS. NOW IN SR W/ 1ST DEGREE AVB. ORDERS REC'D.
--- NOTE | 2019-03-22 19:00 | NUR ---
SHIFT ASSESSMENT COMPLETE. VS STABLE. NO VISUAL CUES OF DISTRESS NOTED. WILL CONTINUE TO MONITOR.
--- NOTE | 2019-03-22 21:00 | NUR ---
VS STABLE. RESPIRATIONS EVEN AND UNLABORED. NO VISUAL CUES OF DISTRESS NOTED. WILL CONTINUE TO MONITOR.
--- NOTE | 2019-03-22 23:00 | NUR ---
VS STABLE. RESPIRATIONS EVEN AND UNLABORED. NO VISUAL CUES OF DISTRESS NOTED. WILL CONTINUE TO MONITOR.
[2019-03-23] VITALS (28 sets, daily range): BP systolic 82–136; BP diastolic 33–89
--- NOTE | 2019-03-23 01:00 | NUR ---
VS STABLE. RESPIRATIONS EVEN AND UNLABORED. NO VISUAL CUES OF DISTRESS NOTED. WILL CONTINUE TO MONITOR.
--- NOTE | 2019-03-23 03:00 | NUR ---
VS STABLE. RESPIRATIONS EVEN AND UNLABORED. NO VISUAL CUES OF DISTRESS NOTED. WILL CONTINUE TO MONITOR.
--- NOTE | 2019-03-23 05:00 | NUR ---
VS STABLE. RESPIRATIONS EVEN AND UNLABORED. NO VISUAL CUES OF DISTRESS NOTED. WILL CONTINUE TO MONITOR.
[2019-03-23 06:25] LABS: HEMATOCRIT 26.7 % (36.0-48.0); HEMOGLOBIN 8.8 g/dL (12-16); MEAN PLATELET VOLUME 9.6 fL (7.4-10.4); RBC 2.84 10x6/uL (4.00-5.40); RDW 16.2 % (11.5-14.5); WBC 4.6 10x3/uL (4.8-10.8)
[2019-03-23 06:54] LABS: ALBUMIN 2.4 g/dL (3.4-5.0); ALKALINE PHOSPHATASE 46 U/L (46-116); ALT (SGPT) 30 U/L (10-68); BILIRUBIN - TOTAL 1.02 mg/dL (0.2-1.3); CALC OSMOLALITY 278 mosm/kg (275-300); CALCIUM 7.9 mg/dL (8.5-10.1); CARBON DIOXIDE 26.6 mmol/L (21.0-32.0); CHLORIDE - SERUM 107 mmol/L (98-107); CREATININE - SERUM 0.6 mg/dL (0.6-1.3); GLUCOSE 102 mg/dL (74-106); PROTEIN - SERUM 5.2 g/dL (6.4-8.2); SODIUM 139 mmol/L (136-145); UREA NITROGEN 15 mg/dL (7-18); eGFR NON AFRICAN AMERICAN > 90 mL/min (90-120)
--- NOTE | 2019-03-23 07:15 | NUR ---
REC'D ON BSC-VDS/BM. ASSISTED TO CHAIR. VSS, DENIES ANY NEED AT THIS TIME.
--- NOTE | 2019-03-23 07:30 | NUR ---
ASSESSED. PLEASANT- DENIES PAIN.
--- NOTE | 2019-03-23 08:52 | NUR ---
CM W/ UCAFib 120-150s, ASYMPTOMATIC. AM MEDS GIVEN.
--- NOTE | 2019-03-23 09:52 | NUR ---
DR MAYNARD NOTIFIED OF SUSTAINED UCAFib 130- 160s. GIVEN ADDITIONAL BETAPACE 40MG PO.
--- NOTE | 2019-03-23 11:40 | NUR ---
REASSESSED. RHYTHM VERY IRREGULAR W/ RATE 90-130s. FEELS TIRED OTHERWISE REMAINS ASYMPTOMATIC.
--- NOTE | 2019-03-23 11:44 | NUR ---
DANAY SR 1ST AVB. REMAINS UP IN CHAIR.
--- NOTE | 2019-03-23 12:30 | NUR ---
CM W/ VARIABLE UCAFib 100-130s. ASYMPTOMATIC.
--- NOTE | 2019-03-23 13:00 | NUR ---
CM- SR 1ST AVB. FAMILY IN AND UPDATED.
--- NOTE | 2019-03-23 16:00 | NUR ---
REASSESSED. PLEASANT- DENIES PAIN OR ANY NEED AT THIS TIME.
--- NOTE | 2019-03-23 16:56 | NUR ---
CM- UCAFIB 130-160s AFTER UP TO BSC/BATH/LINEN CHANGE. DENIES PAIN, SOB OR OTHER DISCOMFORT.
--- NOTE | 2019-03-23 17:18 | NUR ---
DR MAYNARD NOTIFIED OF SUSTAINED ACAFib- INSTRUCTED TO "KEEP HER IN BED" AND LET ME KNOW WHAT SHE'S DOING IN 30 MIN."
--- NOTE | 2019-03-23 17:56 | NUR ---
DR MAYNARD NOTIFIED OF CONT'D FAST HR AND BP RANGING 75/58 TO 99/57. ORDERS REC'D- SEE EMAR.
--- NOTE | 2019-03-23 19:00 | NUR ---
REPORT RECEIVED CARE ASSUMED. FAMILY AT BEDSIDE TEACHING PROVIDED. TPM BATTERIES CHANGED. ASSESSMENT DONE SEE FLOW SHEET. INCREASE IN HR NOTED. SUBSTERNAL DRESSING CHANGED.
--- NOTE | 2019-03-23 19:00 | NUR ---
CM UCAFib 120-150s, OPENS EYES TO VERBAL.
--- NOTE | 2019-03-23 20:00 | NUR ---
DR MAYNARD INFORMED OF PT STATUS. MED ORDERED SEE NOV. VSS.
--- NOTE | 2019-03-23 21:43 | NUR ---
DR MAYNARD INFORMED OF PT STATUS MED GIVEN PER MAR WILL CONTINUE TO MONITOR.
--- NOTE | 2019-03-23 23:00 | NUR ---
REASSESSMENT DONE SEE FLOW SHEET. NO ACUTE DISTRESS NOTED. DR MAYNARD INFORMED OF PT STATUS MED GIVEN PER MAR.
[2019-03-24] VITALS (24 sets, daily range): BP systolic 92–144; BP diastolic 48–75
--- NOTE | 2019-03-24 00:13 | NUR ---
DR MAYNARD INFORMED OF PT STATUS MED ORDERED SEE MAR WILL CONTINUE TO MONITOR.
--- NOTE | 2019-03-24 01:09 | NUR ---
DR MAYNARD INFORMED OF PT STATUS HR 59. BP SYSTOLIC ABOVE 90. 1ST DEGREE BLOCK BUT QUICKLY CONVERTS TO CONTROLLED FIB. ORDER TO INCREASE CARDIZEM TO 10 LONG HEMOSTABLE. WILL CONTINUE TO MONITOR.
--- NOTE | 2019-03-24 03:00 | NUR ---
0148 PT BRADYS DOWN TO 37. QUICKLY RECOVERS TO 58. VSS. 0300 REASSESSMENT DONE SEE FLOW SHEET. VSS.
--- NOTE | 2019-03-24 04:13 | NUR ---
UPON EXERTION TO GET ON BED AZUL PT CONVERTED TO AFIB CONTROLLED. VSS WILL CONITNUE TO MONTIOR.
--- NOTE | 2019-03-24 05:00 | NUR ---
DAILY WEIGHT COLLECTED. IO. VSS. PT CONVERTS TO CONTROLLED FIB WITH INCREASED MOVEMENT.
[2019-03-24 06:06] LABS: BASOPHILS 0.2 % (0-2); EOSINOPHILS 1.4 % (0-7); HEMATOCRIT 27.2 % (36.0-48.0); IMMATURE GRANULOCYTES 1.6 % (0-5); MCH 30.8 pg (26.0-34.0); MCHC 33.1 g/dL (31.0-37.0); MCV 93.2 fL (80.0-100.0); MEAN PLATELET VOLUME 9.8 fL (7.4-10.4); MONOCYTES 13.9 % (2-11); NEUTROPHILS 60.9 % (40-80); PLATELET COUNT 114 10x3/uL (130-400); RBC 2.92 10x6/uL (4.00-5.40)
[2019-03-24 06:23] LABS: ALBUMIN 2.3 g/dL (3.4-5.0); ALKALINE PHOSPHATASE 50 U/L (46-116); ALT (SGPT) 33 U/L (10-68); BILIRUBIN - TOTAL 0.99 mg/dL (0.2-1.3); CALC OSMOLALITY 279 mosm/kg (275-300); CALCIUM 8.1 mg/dL (8.5-10.1); CARBON DIOXIDE 25.8 mmol/L (21.0-32.0); CHLORIDE - SERUM 107 mmol/L (98-107); CREATININE - SERUM 0.6 mg/dL (0.6-1.3); GLUCOSE 105 mg/dL (74-106); POTASSIUM - SERUM 4.4 mmol/L (3.5-5.1); PROTEIN - SERUM 5.2 g/dL (6.4-8.2); SODIUM 140 mmol/L (136-145); UREA NITROGEN 16 mg/dL (7-18); eGFR NON AFRICAN AMERICAN > 90 mL/min (90-120)
[2019-03-24 06:39] LABS: INR 1.23 (0.85-1.17)
--- NOTE | 2019-03-24 07:00 | NUR ---
REPORT RECEVIED FROM THE OFF GOING RN. SEE ASSESSMENT IN THE PTS FLOW SHEET. PT IN BED. ORDERS FOR BEDREST. PT CURRENTLY IN NS WITH A 1RST DEGREE BLOCK. WAS INFORMED THAT THE PT HAS BEEN IN AND OUT OF AFIB WITH OCCASIONAL PAUSES. VSS AT THIS TIME. PT ON RA. O2 SAT 90%. PT DENIES SOB. O2 PLACED ON THE PT AT 2L VIA NC. PT SUBSTERAL AND MIDSTERNAL DRESSING C/D/I. PT'S BREAKFAST TRAY PROVIDED. DENIES PAIN AT THIS TIME. ENCOURAGED IS 10X'S/H. CALL LIGHT IN REACH. WILL CONT POC.
--- NOTE | 2019-03-24 09:55 | NUR ---
NUTRITION F/U REG DIET, 50% INTAKE DOCUMENTED RECENT MEALS. WILL CONTINUE TO PROVIDE DIET, HONOR FOOD PREFERENCES. RD FOLLOWING
--- NOTE | 2019-03-24 10:30 | NUR ---
KACIE SWEET PULLED TPM WIRES PER DR MAYNARD.
--- NOTE | 2019-03-24 10:42 | NUR ---
DECREASE CARDIZEM TO 5MG/H, ADD LOVENOX AND GET PT OOB TOLERATED FOR LUNCH AND THEN BACK INTO BED PER DR MAYNARD.
--- NOTE | 2019-03-24 12:54 | NUR ---
DR RIVER AT THE PTS BEDSIDE.
--- NOTE | 2019-03-24 16:30 | NUR ---
PT DENIES PAIN AT THIS TIME. VSS. PT HAS BEEN IN NORMAL SINUS. CALL LIGTH IN REACH. WILL CONT POC.
--- NOTE | 2019-03-24 17:00 | NUR ---
DR MAYNARD AT THE PTS BEDSIDE. TURN OFF [facility] [place].
--- NOTE | 2019-03-24 18:38 | TEE ---
PATIENT:BRAULIO KEENAN MEDICAL RECORD: [id number] LOCATION:[place] [address] AGE OF PATIENT: 73 ADMISSION DATE: 03/18/19 SEX: F REFERRING PHYSICIAN: INTERPRETING PHYSICIAN: JEN REGALADO MD TRANSESOPHAGEAL ECHOCARDIOGRAM Date: 03/18/19 OSMAN CHARGE Y INDICATIONS: MITRAL VALVE REPLACEMENT PREMEDICATIONS: PATIENT'S RESPONSE PROCEDURE DOPPLER MEASUREMENTS: LVIT LA PA RA LVOT RVOT Asc. Ao AV Gradient Peak AV Mean AV Area MV Gradient Peak MV Mean MV Area INTERPRETATION: Doppler: 2-D: COLOR FLOW DOPPLER NORMAL SALINE STUDY: MISCELLANOUS: DIAGNOSIS: PLAN: Butcher'S Assistant:3 Dr. [employer] Demonstrator: Kyara CUELLAR COMMENTS: CAESAR PATIENT DATE OF SERVICE: 03/18/2019 PROCEDURE: Transesophageal echo evaluation of valvular structures during mitral valve replacement surgery. FINDINGS: 1. Left ventricular chamber size is within normal limits. Left ventricular systolic function is normal. Overall ejection fraction estimated at 60%. 2. Left atrium, right atrium and right ventricular chamber sizes are mildly TRANSESOPHAGEAL ECHOCARDIOGRAM REPORT [id number] DANIEL KEENAN. 3. Valvular structures: Mitral valve demonstrates posterior leaflet mitral valve prolapse with severe mitral regurgitation. The remaining valvular structures have normal structure and motion. 4. Doppler interrogation elsewise reveals only trace aortic insufficiency. No other valvular insufficiency or stenosis. 5. No evidence of pericardial effusion or left ventricular thrombus. TRANSINT:[id number] Voice Confirmation ID: [id number] DOCUMENT ID: [id number] at [id number] CC: [id number] DICTATION DATE: 03/18/19 1614 THREADING MACHINE FEEDER AUTOMATIC: 03/19/19 0203 ADM IN [facility] [address] [place] [place] [id number]
--- NOTE | 2019-03-24 23:50 | NUR ---
PT UP TO BSC WITH MINIMAL ASSIST NEEDED. CHG BATH GIVEN LINEN CHANGED. PT BACK TO BED, TOLERATED WELL, AND DENIES ANY NEEDS AT THIS TIME.
[2019-03-25] VITALS (63 sets, daily range): BP systolic 64–157; BP diastolic 31–100
[2019-03-25 05:57] LABS: BASOPHILS 0.2 % (0-2); EOSINOPHILS 2.1 % (0-7); HEMATOCRIT 28.9 % (36.0-48.0); HEMOGLOBIN 9.7 g/dL (12-16); IMMATURE GRANULOCYTES 2.3 % (0-5); LYMPHOCYTES 21.9 % (15-50); MCH 31.2 pg (26.0-34.0); MCHC 33.6 g/dL (31.0-37.0); MCV 92.9 fL (80.0-100.0); MEAN PLATELET VOLUME 9.1 fL (7.4-10.4); MONOCYTES 11.9 % (2-11); NEUTROPHILS 61.6 % (40-80); PLATELET COUNT 118 10x3/uL (130-400); RBC 3.11 10x6/uL (4.00-5.40); RDW 16.1 % (11.5-14.5); WBC 5.6 10x3/uL (4.8-10.8)
[2019-03-25 06:33] LABS: ALBUMIN 2.4 g/dL (3.4-5.0); ALKALINE PHOSPHATASE 53 U/L (46-116); ALT (SGPT) 26 U/L (10-68); BILIRUBIN - TOTAL 0.94 mg/dL (0.2-1.3); CALC OSMOLALITY 281 mosm/kg (275-300); CALCIUM 8.5 mg/dL (8.5-10.1); CARBON DIOXIDE 26.7 mmol/L (21.0-32.0); CHLORIDE - SERUM 107 mmol/L (98-107); CREATININE - SERUM 0.7 mg/dL (0.6-1.3); GLUCOSE 108 mg/dL (74-106); PROTEIN - SERUM 5.4 g/dL (6.4-8.2); SODIUM 141 mmol/L (136-145); UREA NITROGEN 12 mg/dL (7-18); eGFR NON AFRICAN AMERICAN 87 mL/min (90-120)
--- NOTE | 2019-03-25 07:46 | NUR ---
REPORT RECEIVED. PT UP IN CHAIR AT BEDSIDE. BREAKFAST TRAY HAS BEEN PROVIDED. FRESH DECAF COFFEE MADE FOR PATIENT. CALL LIGHT IN REACH.
[2019-03-25 07:48] LABS: INR 1.34 (0.85-1.17)
--- NOTE | 2019-03-25 08:12 | NUR ---
pt assisted up to toilet. bm. now back to chair.
--- NOTE | 2019-03-25 08:47 | NUR ---
PT UP WALKING WITH PHYSICAL THERAPY. NO DISTRESS NOTED. REMAINS SR ON MONITOR
--- NOTE | 2019-03-25 11:00 | NUR ---
REASSESSMENT DONE SEE FLOW SHEET. R AC PIV STARTED VSS WILL CONTINUE TO MONITOR.
--- NOTE | 2019-03-25 12:52 | NUR ---
PT AMBULATED TO BATHROOM. MODERATE ASSISTANCE REQUIRED. VSS. FORMED STOOL SEEN.
--- NOTE | 2019-03-25 13:35 | NUR ---
PT CONVERTED TO AFIB UNCONTROLLED DURING AMBULATION WITH PT. STAT LABS DRAWN. HEMO STABLE WILL CONTINUE TO MONITOR.
--- NOTE | 2019-03-25 13:46 | NUR ---
DR ALETA ARIZA.
[2019-03-25 14:03] LABS: MAGNESIUM - SERUM 1.8 mg/dL (1.8-2.4); POTASSIUM - SERUM 4.4 mmol/L (3.5-5.1)
--- NOTE | 2019-03-25 14:51 | NUR ---
CRASH CART AT BEDSIDE. BADS AND ELECTRODES IN PLACE. WILL CONTINUE TO MONITOR.
--- NOTE | 2019-03-25 15:00 | NUR ---
REASSESSMENT DONE SEE FLOW SHEET. HEMO STABLE INCREASED HR NOTED. WILL CONTINUE TO MONITOR.
--- NOTE | 2019-03-25 18:16 | NUR ---
DR FRANKLIN INFORMED OF PT STATUS. ORDER FOR CARDIZEM DRIP TO BE STARTED AT 2.5MG/HR IF NOT CONVERTED INCREASE RATE TO 5MG/HR.
[2019-03-26] VITALS (25 sets, daily range): BP systolic 112–153; BP diastolic 54–90
--- NOTE | 2019-03-26 06:20 | NUR ---
CVL REMOVED PER MD ORDER. PATIENT TOLERATED WELL NO DISTRESS NOTED. CM 1ST DEGREE AV BLOCK WITH ST DEPRESSION NOTED. NO CHANGES IN CONDITION. PATIENT DENIES ANY NEEDS AT THIS TIME.
[2019-03-26 06:58] LABS: BASOPHILS 0.2 % (0-2); EOSINOPHILS 1.8 % (0-7); HEMATOCRIT 32.1 % (36.0-48.0); HEMOGLOBIN 10.7 g/dL (12-16); IMMATURE GRANULOCYTES 1.5 % (0-5); LYMPHOCYTES 22.7 % (15-50); MCH 31.1 pg (26.0-34.0); MCHC 33.3 g/dL (31.0-37.0); MCV 93.3 fL (80.0-100.0); MEAN PLATELET VOLUME 9.3 fL (7.4-10.4); MONOCYTES 10.5 % (2-11); NEUTROPHILS 63.3 % (40-80); PLATELET COUNT 127 10x3/uL (130-400); RBC 3.44 10x6/uL (4.00-5.40); RDW 16.5 % (11.5-14.5); WBC 6.1 10x3/uL (4.8-10.8)
[2019-03-26 07:05] LABS: INR 1.47 (0.85-1.17); PROTIME 17.3 SECONDS (11.6-15.0)
[2019-03-26 07:24] LABS: ALBUMIN 2.7 g/dL (3.4-5.0); ANION GAP 12.5 mmol/L (8-16); BILIRUBIN - TOTAL 0.84 mg/dL (0.2-1.3); CALCIUM 8.8 mg/dL (8.5-10.1); CARBON DIOXIDE 26.4 mmol/L (21.0-32.0); CREATININE - SERUM 0.8 mg/dL (0.6-1.3); POTASSIUM - SERUM 3.9 mmol/L (3.5-5.1)
--- NOTE | 2019-03-26 08:25 | NUR ---
CALLED TO ROOM OUT OF CHAIR TO BSC WITH STAND BY ASSIST
--- NOTE | 2019-03-26 08:41 | NUR ---
CALLED TO ROOM, BACK TO CHAIR WITH STAND BY ASSIST TOLERATED WITH MINIMAL DYSPNEA, 200 CC URINE TO COMMODE MIXED WITH SMALL SOFT BROWN STOOL
--- NOTE | 2019-03-26 14:28 | NUR ---
Nutrition Follow Up: Chart reviewed Diet: Regular PO Intake: 46% meal avg I>O BM: 03/25/19 Wt stable Meds and labs reviewed Rec continue current diet. Pt may benefit from an appetite stimulant. RD following.
--- NOTE | 2019-03-26 15:40 | NUR ---
CALLED TO ROOM, OUT OF CHAIR TO BEDSIDE COMMODE WITH STAND BY ASSIST, TOLERATED WITHOUT DIFFICULTY
--- NOTE | 2019-03-26 15:59 | NUR ---
BACK TO CHAIR WITH STAND BY ASSIST, NOTED RIGHT AC PIV OUT WITH CATHETER INTACT, GAUZE DRESSING APPLIED,
--- NOTE | 2019-03-26 17:50 | NUR ---
PIV RECITED WITH 20G ATTEMPTS X1 TO RIGHT AC, TOLERATED WITHOUT DIFFICULTY
--- NOTE | 2019-03-26 19:00 | NUR ---
SHIFT ASSESSMENT COMPLETE. VS STABLE. NO VISUAL CUES OF DISTRESS NOTED. WILL CONTINUE TO MONITOR.
--- NOTE | 2019-03-26 21:00 | NUR ---
VS STABLE. NO VISUAL CUES OF DISTRESS NOTED. WILL CONTINUE TO MONITOR.
--- NOTE | 2019-03-26 23:00 | NUR ---
VS STABLE. NO VISUAL CUES OF DISTRESS NOTED. WILL CONTINUE TO MONITOR.
--- NOTE | 2019-03-26 23:00 | NUR ---
VS STABLE. NO VISUAL CUES OF DISTRESS NOTED. WILL CONTINUE TO MONITOR.
[2019-03-27] VITALS (24 sets, daily range): BP systolic 107–164; BP diastolic 54–90
--- NOTE | 2019-03-27 | NUR ---
VS STABLE. NO VISUAL CUES OF DISTRESS NOTED. WILL CONTINUE TO MONITOR.
--- NOTE | 2019-03-27 01:00 | NUR ---
VS STABLE. NO VISUAL CUES OF DISTRESS NOTED. WILL CONTINUE TO MONITOR.
--- NOTE | 2019-03-27 03:00 | NUR ---
VS STABLE. NO VISUAL CUES OF DISTRESS NOTED. WILL CONTINUE TO MONITOR.
--- NOTE | 2019-03-27 05:00 | NUR ---
VS STABLE. NO VISUAL CUES OF DISTRESS NOTED. WILL CONTINUE TO MONITOR.
[2019-03-27 06:48] LABS: INR 2.09 (0.85-1.17); PROTIME 22.8 SECONDS (11.6-15.0)
[2019-03-27 06:50] LABS: ALBUMIN 2.6 g/dL (3.4-5.0); ALKALINE PHOSPHATASE 57 U/L (46-116); ALT (SGPT) 32 U/L (10-68); BILIRUBIN - TOTAL 0.62 mg/dL (0.2-1.3); CALC OSMOLALITY 282 mosm/kg (275-300); CALCIUM 8.3 mg/dL (8.5-10.1); CARBON DIOXIDE 27.6 mmol/L (21.0-32.0); CHLORIDE - SERUM 106 mmol/L (98-107); CREATININE - SERUM 0.6 mg/dL (0.6-1.3); GLUCOSE 115 mg/dL (74-106); POTASSIUM - SERUM 3.7 mmol/L (3.5-5.1); PROTEIN - SERUM 5.1 g/dL (6.4-8.2); SODIUM 142 mmol/L (136-145); UREA NITROGEN 9 mg/dL (7-18); eGFR NON AFRICAN AMERICAN > 90 mL/min (90-120)
[2019-03-27 06:55] LABS: BASOPHILS 0.2 % (0-2); EOSINOPHILS 2.3 % (0-7); HEMATOCRIT 28.2 % (36.0-48.0); HEMOGLOBIN 9.6 g/dL (12-16); IMMATURE GRANULOCYTES 1.6 % (0-5); LYMPHOCYTES 19.2 % (15-50); MCH 31.2 pg (26.0-34.0); MCV 91.6 fL (80.0-100.0); MEAN PLATELET VOLUME 9.9 fL (7.4-10.4); MONOCYTES 11.6 % (2-11); NEUTROPHILS 65.1 % (40-80); PLATELET COUNT 105 10x3/uL (130-400); RBC 3.08 10x6/uL (4.00-5.40); RDW 16.6 % (11.5-14.5); WBC 5.6 10x3/uL (4.8-10.8)
--- NOTE | 2019-03-27 09:40 | NUR ---
0700 PT UP IN CHAIR ALERT AND ORIENTED VSS DENIES PAIN, CONTINENT, INCISIONS OPEN TO AIR, CARDIZEM DCD, RFA PIV SL, SEE SHIFT ASSESSMENT FOR DETAILS 0900 ASSISTED TO BATHROOM, BM NOTED
--- NOTE | 2019-03-27 16:39 | NUR ---
1100 AMBULATED WITH THERAPY, ASSISTED WITH CHG BATH 1300 ATE 75% LUNCH 1500 AMBULATED AGAIN WITH THERAPY 1630 DINNER TRAY SERVED
--- NOTE | 2019-03-27 19:05 | NUR ---
REPORT RECEIVED, SHIFT ASSESSMENT COMPLETED PER FLOW SHEET, SEE FOR DETAILS. NO ACUTE DISTRESS NOTED. DENIES PAIN OR NEEDS. CALL LIGHT WITHIN REACH. WILL CONTINUE TO MONITOR.
--- NOTE | 2019-03-27 21:20 | NUR ---
CALL LIGHT ANSWERED, ASSISSTED OUT OF CHAIR TO BR, VOID X1. ASSISSTED BACK IN BED. CALL LIGHT WITHIN REACH. DENIES OTHER NEEDS. WILL CONTINUE TO MONITOR.
--- NOTE | 2019-03-27 23:31 | NUR ---
REASSESSMENT COMPLETED PER FLOW SHEET, SEE FOR DETAILS. NO ACUTE CHANGES NOTED. DENIES NEEDS. CALL LIGHT WITHIN REACH. WILL CONTINUE TO MONITOR.
[2019-03-28] VITALS (16 sets, daily range): BP systolic 90–136; BP diastolic 46–93
--- NOTE | 2019-03-28 01:12 | NUR ---
CALL LIGHT ANSWERED, ASSISSTED OOB TO USE BR, VOID X1, ASSISSTED BACK IN BED. DENIES OTHER NEEDS. CALL LIGHT WITHIN REACH.
--- NOTE | 2019-03-28 03:01 | NUR ---
REASSESSMENT COMPLETED PER FLOW SHEET, SEE FOR DETAILS. NO ACUTE DISTRESS NOTED. ASSISSTED OOB TO BR, VOID X1. ASSISSTED BACK IN BED. DENIES OTHER NEEDS. CALL LIGHT WITHIN REACH. WILL CONTINUE TO MONITOR.
--- NOTE | 2019-03-28 05:00 | NUR ---
RESTING, DENIES NEEDS. NO ACUTE DISTRESS NOTED. WILL CONTINUE TO MONITOR.
[2019-03-28 06:33] LABS: BASOPHILS 0.2 % (0-2); EOSINOPHILS 1.7 % (0-7); HEMATOCRIT 29.5 % (36.0-48.0); HEMOGLOBIN 9.9 g/dL (12-16); IMMATURE GRANULOCYTES 0.7 % (0-5); INR 2.42 (0.85-1.17); LYMPHOCYTES 18.5 % (15-50); MCH 31.1 pg (26.0-34.0); MCHC 33.6 g/dL (31.0-37.0); MCV 92.8 fL (80.0-100.0); MEAN PLATELET VOLUME 9.9 fL (7.4-10.4); MONOCYTES 11.7 % (2-11); NEUTROPHILS 67.2 % (40-80); PLATELET COUNT 123 10x3/uL (130-400); PROTIME 25.6 SECONDS (11.6-15.0); RBC 3.18 10x6/uL (4.00-5.40); RDW 16.8 % (11.5-14.5); WBC 5.8 10x3/uL (4.8-10.8)
[2019-03-28 06:41] LABS: ALBUMIN 2.6 g/dL (3.4-5.0); ALKALINE PHOSPHATASE 58 U/L (46-116); ALT (SGPT) 35 U/L (10-68); BILIRUBIN - TOTAL 0.61 mg/dL (0.2-1.3); CALC OSMOLALITY 281 mosm/kg (275-300); CALCIUM 8.6 mg/dL (8.5-10.1); CARBON DIOXIDE 28.4 mmol/L (21.0-32.0); CHLORIDE - SERUM 103 mmol/L (98-107); CREATININE - SERUM 0.7 mg/dL (0.6-1.3); GLUCOSE 128 mg/dL (74-106); POTASSIUM - SERUM 3.4 mmol/L (3.5-5.1); PROTEIN - SERUM 5.7 g/dL (6.4-8.2); SODIUM 141 mmol/L (136-145); UREA NITROGEN 9 mg/dL (7-18); eGFR NON AFRICAN AMERICAN 87 mL/min (90-120)
--- NOTE | 2019-03-28 07:32 | NUR ---
0700 PT RECIEVED UP IN CHAIR ALERT AN DORIENTED ON ROOM AIR VSS DENIES PAIN, INCISIONS OPEN TO AIR, CALL LIGHT WITHIN REACH, SEE SHIFT ASSESSMENT FOR DETAILS
--- NOTE | 2019-03-28 09:00 | NUR ---
AMBULATED WITH THERAPY
[2019-03-28] MEDS ORDERED: COUMADIN5 MG PO (09:29)
[2019-03-28] MEDS ORDERED: BETAPACE 80 MG80 MG PO (09:29)
[2019-03-28] MEDS ORDERED: LASIX40 MG PO (09:32)
[2019-03-28] MEDS ORDERED: K-DUR20 MEQ PO (09:32)
[2019-03-28] MEDS ORDERED: COLACE100 MG PO (09:33)
[2019-03-28] MEDS ORDERED: Senokot-S Tablet PO (09:34)
[2019-03-28] MEDS ORDERED: CARDIZEM30 MG PO (11:17)
[2019-03-28] MEDS ORDERED: ULTRAM50 MG PO (11:24)
--- NOTE | 2019-03-28 12:19 | NUR ---
Nutrition Follow Up: Pt was asleep at the time of RD visit. Interview deferred at this time. Diet: Clears AAT Regular PO Intake: 63% meal avg - po intake improving I<O Wt loss noted - likely r/t fluid BM: 03/26/19 Labs reviewed Meds noted including Lasix Rec continue current diet. RD following.
--- NOTE | 2019-03-28 16:19 | NUR ---
PIV REMOVED, DC INSTRUCTIONS AND MEDS REVIEWED WITH PT AND FAMILY, DENIES QUESTIONS, ASSISTED TO CAR
--- NOTE | 2019-03-28 16:45 | MORECARE ---
CASE MANAGEMENT DISCHARGE SUMMARY PATIENT: BRAULIO KEENAN UNIT: [id number] ADM DATE: 03/18/19 AGE: 73 : 45 SEX: F ROOM/BED: [facility] AUTHOR: JOHN ORTIZ PHYSICIAN: REFERRING PHYSICIAN: ANDERE MAYNARD MD DATE OF SERVICE: 03/28/19 Discharge Plan Patient Name: BRAULIO KEENAN Facility: [facility]:[place] : 1945 Planned Disposition: Anticipated Discharge Date: Discharge Date: 03/28/2019 Expected LOS: Initial Reviewer: [id number] Initial Review Date: 03/21/2019 Generated: 03/28/19 5:44 pm Comments DCP- Discharge Planning Updated by [email or web address]: Tara Valente on 03/28/19 3:[address] Patient Name: BRAULIO KEENAN Encounter No: [id number] : 1945 Primary Insurance: MEDICARE A & B Anticipated DC Date: Planned Disposition: External Planned Provider: : D/C IMM EXPLAINED AND SIGNED 03/28/19 @ 1101 DCP follow-up note: Patient and family in agreement with discharge plan. No changes to plan. Case management will follow and assist as needed. Tara Valente DCP- Discharge Planning Updated by [email or web address]: Jaja Warren on 03/21/19 2:[address] Patient Name: BRAULIO KEENAN Admission Status: Elective Accout number: [id number] Admission Date: 03-18-2019 : 1945 Admission Diagnosis:NONRHEUMATIC MITRAL (VALVE) PROLAPSE Attending: ANDREE MAYNARD Current LOS: 3 Anticipated DC Date: Planned Disposition: Primary Insurance: MEDICARE A & B Discharge Planning Comments: CM MET WITH PATIENT ABOUT DC PLANNING/NEEDS. RESOURCES FOR POST DISCHARGE OFFERED TO PATIENT. STATES NO NEEDS AT THIS TIME. WILL DC TO HOME WITH FAMILY. CM TO FOLLOW AND ASSIST NEEDED WITH DC PLANNING/NEEDS. Mechanic Assistant: Jaja Warren DCPIA - Discharge Planning Initial Assessment Updated by [id number]: Jaja Warren on 03/21/19 3:57 pm * Is the patient Alert and Oriented? Yes * PCP REIVES * Pharmacy [facility] * Preadmission Environment Home with Family * ADLs Independent * Equipment None * List name and contact numbers for known caregivers / representatives who currently or will assist patient after discharge: LELAND, JAIME, * Community resources currently utilized None * Additional services required to return to the preadmission environment? No * Can the patient safely return to the preadmission environment? Yes * Has this patient been hospitalized within the prior 30 days at any hospital? No Coverage Notice Reviewer: [id number] Justine Valente Notice Issued Date-Time: 03/28/2019 11:01 Notice Type: IM Discharge Notice Notice Delivered To: Patient Relationship to Patient: Self Nurse Tech Name: Delivery Method: HAND - Hand Delivered Gogo Days: Prior Verbal Notification: Recipient Understood Notice: Yes Recipient Signature: Yes Med Rec Note Co-signed by Attending: Coverage Notice Comment: Last DP export: 03/21/19 3:04 p Patient Name: BRAULIO KEENAN Page [id number] at 1645 All edits/amendments must be made on the electronic document DICTATION DATE: 03/28/191643 ORNAMENTER: AILYN 03/28/191643 RPT#: [id number] DC DATE:03/28/19 STATUS: DIS IN [facility] [address] [place] [address] END OF REPORT
--- NOTE | 2019-03-28 16:52 | MORECARE ---
CASE MANAGEMENT DISCHARGE SUMMARY PATIENT: BRAULIO KEENAN UNIT: [id number] ADM DATE: 03/18/19 AGE: 73 : 45 SEX: F ROOM/BED: [facility] AUTHOR: JOHN ORTIZ PHYSICIAN: REFERRING PHYSICIAN: ANDREE MAYNARD MD DATE OF SERVICE: 03/28/19 Discharge Plan Patient Name: BRAULIO KEENAN Facility: [facility]:[place] : 1945 Planned Disposition: Anticipated Discharge Date: Discharge Date: 03/28/2019 Expected LOS: Initial Reviewer: [email or web address] Initial Review Date: 03/21/2019 Generated: 03/28/19 5:52 pm Comments DCP- Discharge Planning Updated by [email or web address]: Tara Valente on 03/28/19 3:[address] Patient Name: BRAULIO KEENAN Encounter No: [id number] : 1945 Primary Insurance: MEDICARE A & B Anticipated DC Date: Planned Disposition: External Planned Provider: : D/C IMM EXPLAINED AND SIGNED 03/28/19 @ 1101 DCP follow-up note: Patient and family in agreement with discharge plan. No changes to plan. Case management will follow and assist as needed. Tara Valente DCP- Discharge Planning Updated by [email or web address]: Jaja Warren on 03/21/19 2:[address] Patient Name: BRAULIO KEENAN Admission Status: Elective Accout number: [id number] Admission Date: 03-18-2019 : 1945 Admission Diagnosis:NONRHEUMATIC MITRAL (VALVE) PROLAPSE Attending: ANDREE MAYNARD Current LOS: 3 Anticipated DC Date: Planned Disposition: Primary Insurance: MEDICARE A & B Discharge Planning Comments: CM MET WITH PATIENT ABOUT DC PLANNING/NEEDS. RESOURCES FOR POST DISCHARGE OFFERED TO PATIENT. STATES NO NEEDS AT THIS TIME. WILL DC TO HOME WITH FAMILY. CM TO FOLLOW AND ASSIST NEEDED WITH DC PLANNING/NEEDS. Tactical Debriefer Officer: Jaja Warren DCPIA - Discharge Planning Initial Assessment Updated by [id number]: Jaja Warren on 03/21/19 3:57 pm * Is the patient Alert and Oriented? Yes * PCP REIVES * Pharmacy [facility] * Preadmission Environment Home with Family * ADLs Independent * Equipment None * List name and contact numbers for known caregivers / representatives who currently or will assist patient after discharge: LELAND, JAIME, * Community resources currently utilized None * Additional services required to return to the preadmission environment? No * Can the patient safely return to the preadmission environment? Yes * Has this patient been hospitalized within the prior 30 days at any hospital? No Coverage Notice Reviewer: [email or web address] Justine Valente Notice Issued Date-Time: 03/28/2019 11:01 Notice Type: IM Discharge Notice Notice Delivered To: Patient Relationship to Patient: Self Cps Team Lead Name: Delivery Method: HAND - Hand Delivered Gogo Days: Prior Verbal Notification: Recipient Understood Notice: Yes Recipient Signature: Yes Med Rec Note Co-signed by Attending: Coverage Notice Comment: Last DP export: 03/28/19 3:45 p Patient Name: BRAULIO KEENAN Page [phone] at 1652 All edits/amendments must be made on the electronic document DICTATION DATE: 03/28/191651 ASSOCIATE SCHOOL PSYCHOLOGIST: AILYN 03/28/191651 RPT#: [id number] DC DATE:03/28/19 STATUS: DIS IN [facility] [address] [place] [address] END OF REPORT
== END 2019-03-28 16:20 | disposition home or self-care (01) | DRG 220 ==
LOC: D.SDCHOLD 10:00 → D.CVICU 03-18 05:00 → D.SDCHOLD 03-18 07:30 → D.CVICU 03-18 08:27 → D.SDCHOLD 03-18 10:00 → D.CVICU 03-28 16:20
PROVIDERS: Family Medicine Adult Medicine; Internal Medicine Cardiovascular Disease; ADMIT Thoracic Surgery (Cardiothoracic Vascular Surgery); ATTEND Thoracic Surgery (Cardiothoracic Vascular Surgery)
PROC: B24BZZ4 Ultrasonography of Heart with Aorta, Transesophageal (ICD-10-PCS; 2019-03-18)
PROC: 5A1221Z Performance of Cardiac Output, Continuous (ICD-10-PCS; 2019-03-18)
PROC: 02RG08Z Replacement of Mitral Valve with Zooplastic Tissue, Open Approach (ICD-10-PCS; principal; 2019-03-18 07:30)
DX: I34.1 Nonrheumatic mitral (valve) prolapse (principal); D62 Acute posthemorrhagic anemia; J90 Pleural effusion, not elsewhere classified; E11.65 Type 2 diabetes mellitus with hyperglycemia; I10 Essential (primary) hypertension; M81.0 Age-related osteoporosis without current pathological fracture; Z85.3 Personal history of malignant neoplasm of breast; I34.0 Nonrheumatic mitral (valve) insufficiency; D69.6 Thrombocytopenia, unspecified; I48.0 Paroxysmal atrial fibrillation; I45.5 Other specified heart block

== ENCOUNTER → 2019-03-31 08:51 | Outpatient (CLI) | payer MEDICARE, BC ==
[2019-03-19 10:34] VITALS: BMI 31.3
[~2019-03-31 08:51] MED LIST changes: +BETAPACE 80 MG80 MG PO; +CARDIZEM30 MG PO; +COLACE100 MG PO; +COUMADIN5 MG PO; +CRANBERRY; +K-DUR20 MEQ PO; +LASIX40 MG PO; +OCUVITE; +PRIMSOL50 MG/5 ML PO; +Senokot-S Tablet PO; +ULTRAM50 MG PO
[2019-03-31 09:41] LABS: INR 3.78 (0.85-1.17); PROTIME 36.5 SECONDS (11.6-15.0)
== END | disposition home or self-care (01) ==
LOC: D.RAD 08:51
PROVIDERS: ATTEND Internal Medicine Cardiovascular Disease
DX: Z51.81 Encounter for therapeutic drug level monitoring (principal); Z79.01 Long term (current) use of anticoagulants; I48.91 Unspecified atrial fibrillation; J90 Pleural effusion, not elsewhere classified

== ENCOUNTER → 2019-04-04 09:37 | Outpatient (CLI) | payer MEDICARE, BC ==
[2019-03-19 10:34] VITALS: BMI 31.3
[2019-04-04 10:25] LABS: INR 4.43 (0.85-1.17); PROTIME 41.4 SECONDS (11.6-15.0)
== END | disposition home or self-care (01) ==
LOC: D.LAB 09:37
PROVIDERS: ATTEND Internal Medicine Cardiovascular Disease
DX: Z79.02 Long term (current) use of antithrombotics/antiplatelets (principal); Z51.81 Encounter for therapeutic drug level monitoring

== ENCOUNTER → 2019-04-11 09:22 | Outpatient (CLI) | payer MEDICARE, BC ==
[2019-03-19 10:34] VITALS: BMI 31.3
[2019-04-11 11:10] LABS: INR 6.65 (0.85-1.17); PROTIME 57.1 SECONDS (11.6-15.0)
== END | disposition home or self-care (01) ==
LOC: D.LAB 09:22
PROVIDERS: ATTEND Internal Medicine Cardiovascular Disease
DX: Z79.01 Long term (current) use of anticoagulants (principal); I48.91 Unspecified atrial fibrillation

== ENCOUNTER → 2019-04-16 10:46 | Outpatient (CLI) | payer MEDICARE, BC ==
[2019-03-19 10:34] VITALS: BMI 31.3
[2019-04-16 11:41] LABS: HEMATOCRIT 32.5 % (36.0-48.0); HEMOGLOBIN 11.1 g/dL (12-16); MCH 32.7 pg (26.0-34.0); MCHC 34.2 g/dL (31.0-37.0); MCV 95.9 fL (80.0-100.0); MEAN PLATELET VOLUME 8.1 fL (7.4-10.4); RBC 3.39 10x6/uL (4.00-5.40); RDW 16.5 % (11.5-14.5); WBC 4.6 10x3/uL (4.8-10.8)
[2019-04-16 11:47] LABS: INR 4.97 (0.85-1.17); PROTIME 45.4 SECONDS (11.6-15.0)
[2019-04-16 11:55] LABS: ALBUMIN 3.2 g/dL (3.4-5.0); ANION GAP 9.6 mmol/L (8-16); BILIRUBIN - TOTAL 0.58 mg/dL (0.2-1.3); CALCIUM 9.1 mg/dL (8.5-10.1); CARBON DIOXIDE 25.4 mmol/L (21.0-32.0); CREATININE - SERUM 0.9 mg/dL (0.6-1.3); PROTEIN - SERUM 6.8 g/dL (6.4-8.2)
== END | disposition home or self-care (01) ==
LOC: D.LAB 10:46
PROVIDERS: ATTEND Thoracic Surgery (Cardiothoracic Vascular Surgery)
DX: D64.9 Anemia, unspecified (principal); J90 Pleural effusion, not elsewhere classified; Z79.02 Long term (current) use of antithrombotics/antiplatelets

== ENCOUNTER → 2019-04-23 08:14 | Outpatient (CLI) | payer MEDICARE, BC ==
[2019-03-19 10:34] VITALS: BMI 31.3
[2019-04-23 08:35] LABS: HEMATOCRIT 35.1 % (36.0-48.0); HEMOGLOBIN 11.8 g/dL (12-16); MCH 31.9 pg (26.0-34.0); MCHC 33.6 g/dL (31.0-37.0); MCV 94.9 fL (80.0-100.0); MEAN PLATELET VOLUME 9.2 fL (7.4-10.4); RBC 3.7 10x6/uL (4.00-5.40); RDW 16.8 % (11.5-14.5); WBC 4.6 10x3/uL (4.8-10.8)
[2019-04-23 08:56] LABS: ALBUMIN 3.2 g/dL (3.4-5.0); ANION GAP 12.5 mmol/L (8-16); BILIRUBIN - TOTAL 0.98 mg/dL (0.2-1.3); CALCIUM 9.1 mg/dL (8.5-10.1); CARBON DIOXIDE 26.6 mmol/L (21.0-32.0); CREATININE - SERUM 1.2 mg/dL (0.6-1.3); POTASSIUM - SERUM 4.1 mmol/L (3.5-5.1)
== END | disposition home or self-care (01) ==
LOC: D.LAB 08:14
PROVIDERS: ATTEND Thoracic Surgery (Cardiothoracic Vascular Surgery)
DX: J90 Pleural effusion, not elsewhere classified (principal); D64.9 Anemia, unspecified; Z51.81 Encounter for therapeutic drug level monitoring; Z79.01 Long term (current) use of anticoagulants

== ENCOUNTER → 2019-04-30 08:28 | Outpatient (CLI) | payer MEDICARE, BC ==
[2019-03-19 10:34] VITALS: BMI 31.3
[2019-04-30 09:18] LABS: INR 1.23 (0.85-1.17); PROTIME 14.9 SECONDS (11.6-15.0)
== END | disposition home or self-care (01) ==
LOC: D.LAB 08:28
PROVIDERS: ATTEND Thoracic Surgery (Cardiothoracic Vascular Surgery)
DX: Z79.01 Long term (current) use of anticoagulants (principal)

== ENCOUNTER → 2019-05-07 08:32 | Outpatient (CLI) | payer MEDICARE, BC ==
[2019-03-19 10:34] VITALS: BMI 31.3
[2019-05-07 09:09] LABS: INR 1.75 (0.85-1.17); PROTIME 19.8 SECONDS (11.6-15.0)
== END | disposition home or self-care (01) ==
LOC: D.LAB 08:32
PROVIDERS: ATTEND Thoracic Surgery (Cardiothoracic Vascular Surgery)
DX: Z51.81 Encounter for therapeutic drug level monitoring (principal); Z79.01 Long term (current) use of anticoagulants

== ENCOUNTER → 2019-05-14 08:24 | Outpatient (CLI) | payer MEDICARE, BC ==
[2019-03-19 10:34] VITALS: BMI 31.3
[2019-05-14 09:09] LABS: INR 2.41 (0.85-1.17); PROTIME 25.5 SECONDS (11.6-15.0)
== END | disposition home or self-care (01) ==
LOC: D.LAB 08:24
PROVIDERS: ATTEND Thoracic Surgery (Cardiothoracic Vascular Surgery)
DX: Z79.01 Long term (current) use of anticoagulants (principal)

== ENCOUNTER → 2019-05-28 08:35 | Outpatient (CLI) | payer MEDICARE, BC ==
[2019-03-19 10:34] VITALS: BMI 31.3
[2019-05-28 09:39] LABS: INR 2.71 (0.85-1.17); PROTIME 28.1 SECONDS (11.6-15.0)
== END | disposition home or self-care (01) ==
LOC: D.LAB 08:35
PROVIDERS: ATTEND Thoracic Surgery (Cardiothoracic Vascular Surgery)
DX: Z79.01 Long term (current) use of anticoagulants (principal)

== ENCOUNTER → 2020-03-16 11:14 | Outpatient (CLI) | payer MEDICARE, BC ==
[2019-03-19 10:34] VITALS: BMI 31.3
== END | disposition home or self-care (01) ==
LOC: D.HCCECHO 11:14
PROVIDERS: ATTEND Internal Medicine Cardiovascular Disease
DX: I34.0 Nonrheumatic mitral (valve) insufficiency (principal)